=== PATIENT | male | born 1950 | race Caucasian/White ===

== ENCOUNTER 2019-11-15 04:14 | Inpatient (IN) | payer OTHER, MEDICAID ==
[~2019-11-15] VITALS: Ht 182.9 cm; Wt 121.8 kg
[~2019-11-15 04:14] MED LIST: AMIO200T4 PO; APIX5TAB PO; ATOR20TA50 PO; DIGO0.12 PO; GABA300C10; HYDR-4072 PO; METO-6 PO; OMEP-263 PO; PRED20TA2 PO; ROFL1TAB2 PO; SUCR1TAB
[2019-11-15] MEDS ORDERED: ONDANSETRON HCL 4 MG/2 ML VIAL IV ONE ×2 (05:15→07:45)
[2019-11-15] MEDS ORDERED: MORPHINE SULFATE 4 MG/ML SYR/VIAL IV ONE (05:15)
[2019-11-15 06:55] LABS: Basophils # (auto) 0.1 10 ^3/uL (0-0.2); Basophils % (auto) 0.7 % (0.0-2.0); Eosinophils # (auto) 0.2 10 ^3/uL (0-0.8); Hemoglobin 10.8 g/dL (13.5-17.5); Neutrophils % (auto) 83.6 % (37.0-80.0)
[2019-11-15 06:57] LABS: Eosinophils % (auto) 2.1 % (0.0-7.0); Hematocrit 36.1 % (41.0-53.0); Lymphocytes # (auto) 0.8 10 ^3/uL (0.4-5.4); Lymphocytes % (auto) 7.2 % (10.0-50.0); Mean Corpuscular Hemoglobin 21.2 pg (28.0-32.0); Mean Corpuscular Volume 70.7 fL (80.0-100.0); Monocytes # (auto) 0.8 10 ^3/uL (0-1.3); Monocytes % (auto) 6.4 % (0.0-12.0); Neutrophils # (auto) 9.8 10 ^3/uL (1.6-8.6); Nucleated Red Blood Cells % 0.1 %; Platelet Count (auto) 307 10^3/uL (140-450); Red Blood Cells 5.11 10^6/uL (4.5-5.90); White Blood Cell 11.7 10^3/uL (4.4-10.8)
[2019-11-15 07:03] LABS: Red Cell Distribution Width 21.4 % (11.8-14.3)
[2019-11-15 07:08] LABS: Potassium 4.4 mmol/L (3.5-5.1)
[2019-11-15] MEDS ORDERED: cloNIDine HCL 0.1 MG TAB PO ONE (07:15)
[2019-11-15 07:16] LABS: Albumin 3.4 g/dL (3.4-5.0); BUN/Creatinine Ratio 18.2; Bilirubin, Total 0.5 mg/dL (0.2-1.0); Calcium 8.4 mg/dL (8.5-10.1); Total Protein 6.6 g/dL (6.4-8.2)
[2019-11-15] MEDS ORDERED: HYDROmorphone HCL 2 MG/ML VL IV ONE (07:45)
[2019-11-15] MEDS ORDERED: SODIUM CHLORIDE 0.9% 1,000 ML IV ONE (07:50)
[2019-11-15] MEDS ORDERED: LABETALOL HCL 5 MG/ML 4ML SYRINGE IV ONE (08:00)
[2019-11-15] MEDS ORDERED: PIPERACILLIN-TAZOB 3.375GM 100 ML IV ONE (08:00)
[2019-11-15] MEDS ORDERED: NITROGLYCERIN 0.4 MG SL TAB SL PRN (08:45)
[2019-11-15] MEDS ORDERED: MORPHINE SULF INJ 2 MG/ML SYRINGE 1ML IV PRN ×2 (08:45)
[2019-11-15] MEDS ORDERED: ACETAMINOPHEN 325 MG TAB PO PRN (08:45)
[2019-11-15] MEDS ORDERED: hydrALAZINE HCL 20 MG/ML VL IV PRN (09:00)
[2019-11-15] MEDS: PIPERACILLIN-TAZOB 3.375GM 100 ML IV SCH ×2 (09:48→17:54)
[2019-11-15] MEDS: METOPROLOL TARTRATE 25 MG TAB PO SCH ×2 (09:49→22:00)
[2019-11-15] MEDS ORDERED: APIXABAN 5 MG TAB PO SCH (10:00)
[2019-11-15] MEDS: AMIODARONE HCL 200 MG TAB PO SCH ×2 (10:03→22:20)
[2019-11-15] MEDS: DIGOXIN 0.125 MG TAB PO SCH (10:03)
[2019-11-15 10:29] LABS: Lactic Acid w/Reflex 2.1 mmol/L (0.4-2.0)
[2019-11-15 10:55] VITALS: BP 153/88
[2019-11-15] MEDS: ONDANSETRON HCL 4 MG/2 ML VIAL IV PRN ×2 (11:31→15:34)
[2019-11-15] MEDS: MORPHINE SULF INJ 2 MG/ML SYRINGE 1ML IV PRN ×2 (11:31→15:34)
[2019-11-15] MEDS: D5W/SOD CHL 0.45%/KCL 20MEQ 1,000 ML IV SCH (12:28)
[2019-11-15] MEDS: ENALAPRILAT 1.25 MG/ML-1ML VIAL IV PRN (12:30)
[2019-11-15 12:43] VITALS: BP 162/88
[2019-11-15] MEDS: ALBUTEROL SULF 2.5 MG/0.5ML(0.5%) NEB SOLN NEB PRN (15:25)
[2019-11-15] MEDS: IPRATROPIUM BROM 0.5 MG/2.5ML INH SOL NEB PRN (15:25)
[2019-11-15 16:40] VITALS: BP 156/77
[2019-11-15] MEDS: HYDROmorphone HCL 2 MG/ML VL IV PRN ×2 (17:51→20:55)
[2019-11-15] MEDS ORDERED: RIVAROXABAN 20 MG TAB PO SCH (18:00)
[2019-11-15] MEDS: HYDROcodone-ACET 5/325MG TAB PO PRN (19:30)
[2019-11-15 22:00] VITALS: BP 113/64
[2019-11-15] MEDS: ATORVASTATIN 20 MG TAB PO SCH (22:21)
[2019-11-15 22:41] VITALS: BP 171/88
[2019-11-16] MEDS: HYDROmorphone HCL 2 MG/ML VL IV PRN ×7 (00:06→22:01)
[2019-11-16] MEDS: PIPERACILLIN-TAZOB 3.375GM 100 ML IV SCH ×3 (00:07→11:42)
[2019-11-16 05:30] VITALS: BP 92/55
[2019-11-16] MEDS: D5W/SOD CHL 0.45%/KCL 20MEQ 1,000 ML IV SCH ×2 (05:35→15:05)
[2019-11-16 06:19] LABS: Eosinophils # (auto) 0 10 ^3/uL (0-0.8); Eosinophils % (auto) 0.1 % (0.0-7.0); Hemoglobin 13.7 g/dL (13.5-17.5); Lymphocytes # (auto) 0.7 10 ^3/uL (0.4-5.4); Monocytes # (auto) 2.3 10 ^3/uL (0-1.3); Neutrophils # (auto) 10.8 10 ^3/uL (1.6-8.6)
[2019-11-16 06:23] LABS: Basophils # (auto) 0 10 ^3/uL (0-0.2); Basophils % (auto) 0.3 % (0.0-2.0); Hematocrit 44.1 % (41.0-53.0); Lymphocytes % (auto) 5.2 % (10.0-50.0); Mean Corpuscular Hemoglobin 21.6 pg (28.0-32.0); Mean Corpuscular Volume 69.7 fL (80.0-100.0); Monocytes % (auto) 16.7 % (0.0-12.0); Neutrophils % (auto) 77.7 % (37.0-80.0); Platelet Count (auto) 410 10^3/uL (140-450); Red Blood Cells 6.34 10^6/uL (4.5-5.90); White Blood Cell 13.9 10^3/uL (4.4-10.8)
[2019-11-16] MEDS: IPRATROPIUM BROM 0.5 MG/2.5ML INH SOL NEB PRN ×2 (06:33→22:34)
[2019-11-16] MEDS: ALBUTEROL SULF 2.5 MG/0.5ML(0.5%) NEB SOLN NEB PRN ×2 (06:34→22:34)
[2019-11-16 06:55] LABS: BUN/Creatinine Ratio 14.6; Calcium 8.5 mg/dL (8.5-10.1); Magnesium 2.6 mg/dL (1.6-2.6)
[2019-11-16 08:29] VITALS: BP 86/51
[2019-11-16] MEDS: METOPROLOL TARTRATE 25 MG TAB PO SCH ×2 (09:18→21:46)
[2019-11-16] MEDS: AMIODARONE HCL 200 MG TAB PO SCH ×2 (09:18→21:45)
[2019-11-16] MEDS: DIGOXIN 0.125 MG TAB PO SCH (09:46)
[2019-11-16] MEDS: HYDROcodone-ACET 5/325MG TAB PO PRN (09:46)
[2019-11-16 13:00] VITALS: BP 103/45
[2019-11-16] MEDS ORDERED: SODIUM CHLORIDE 0.9% 1,000 ML IV SCH (17:00)
[2019-11-16 18:00] VITALS: BP 109/52
[2019-11-16] MEDS: SODIUM CHLORIDE 0.9% 1,000 ML IV SCH (18:10)
[2019-11-16] MEDS: metroNIDAZOLE 500MG/100ML 100 ML IV SCH (21:45)
[2019-11-16] MEDS: ATORVASTATIN 20 MG TAB PO SCH (21:46)
[2019-11-16 22:00] VITALS: BP 111/72
[2019-11-17] MEDS: HYDROmorphone HCL 2 MG/ML VL IV PRN ×6 (00:45→23:23)
[2019-11-17 05:00] VITALS: BP 125/71
[2019-11-17] MEDS: SODIUM CHLORIDE 0.9% 1,000 ML IV SCH ×3 (05:09→20:17)
[2019-11-17 05:50] LABS: Basophils # (auto) 0 10 ^3/uL (0-0.2); Basophils % (auto) 0.4 % (0.0-2.0); Eosinophils # (auto) 0.2 10 ^3/uL (0-0.8); Lymphocytes # (auto) 1.1 10 ^3/uL (0.4-5.4)
[2019-11-17 05:53] LABS: Eosinophils % (auto) 2.4 % (0.0-7.0); Hematocrit 42.1 % (41.0-53.0); Hemoglobin 12.7 g/dL (13.5-17.5); Lymphocytes % (auto) 12.1 % (10.0-50.0); Mean Corpuscular Hemoglobin 21.4 pg (28.0-32.0); Mean Corpuscular Hgb Conc. 30.1 g/dL (32.0-36.0); Neutrophils # (auto) 5.6 10 ^3/uL (1.6-8.6); Neutrophils % (auto) 63.1 % (37.0-80.0); Platelet Count (auto) 310 10^3/uL (140-450); Red Blood Cells 5.93 10^6/uL (4.5-5.90); White Blood Cell 8.9 10^3/uL (4.4-10.8)
[2019-11-17] MEDS: metroNIDAZOLE 500MG/100ML 100 ML IV SCH ×3 (06:01→21:25)
[2019-11-17 06:08] LABS: BUN/Creatinine Ratio 17.1; Calcium 8.4 mg/dL (8.5-10.1); Potassium 4.4 mmol/L (3.5-5.1)
[2019-11-17 08:05] VITALS: BP 123/67
[2019-11-17] MEDS: cefTRIAXone 1GM/50ML D5W 50 ML IV SCH (08:05)
[2019-11-17] MEDS: ALBUTEROL SULF 2.5 MG/0.5ML(0.5%) NEB SOLN NEB PRN ×2 (08:51→14:28)
[2019-11-17] MEDS: IPRATROPIUM BROM 0.5 MG/2.5ML INH SOL NEB PRN ×2 (08:51→14:28)
[2019-11-17 09:00] VITALS: BP 123/67
[2019-11-17] MEDS: DIGOXIN 0.125 MG TAB PO SCH (09:15)
[2019-11-17] MEDS: METOPROLOL TARTRATE 25 MG TAB PO SCH ×2 (09:15→23:12)
[2019-11-17] MEDS: AMIODARONE HCL 200 MG TAB PO SCH ×2 (09:15→21:25)
[2019-11-17 13:00] VITALS: BP 127/71
[2019-11-17 16:35] LABS: Protein, Urine 34.4 mg/dL (0.0-11.9)
[2019-11-17 16:48] VITALS: BP 122/76
[2019-11-17] MEDS: IPRATROPIUM BROM 0.5 MG/2.5ML INH SOL NEB SCH ×2 (18:46→22:25)
[2019-11-17] MEDS: ALBUTEROL SULF 2.5 MG/0.5ML(0.5%) NEB SOLN NEB SCH ×2 (18:46→22:25)
[2019-11-17] MEDS: ATORVASTATIN 20 MG TAB PO SCH (21:26)
[2019-11-17 22:00] VITALS: BP 146/67
[2019-11-18] VITALS (7 sets, daily range): BP systolic 118–146; BP diastolic 64–76
[2019-11-18 00:17] LABS: Urine Amorphous Crystal FEW /hpf (None Seen); Urine Bacteria FEW /hpf (None Seen); Urine Blood 1+ /uL (Negative); Urine Hyaline Cast FEW /lpf (0 - 2); Urine Specific Gravity 1.016 (1.001-1.035); Urine WBC 7 /hpf (0 - 3)
[2019-11-18] MEDS: SODIUM CHLORIDE 0.9% 1,000 ML IV SCH ×3 (01:00→17:00)
[2019-11-18] MEDS: IPRATROPIUM BROM 0.5 MG/2.5ML INH SOL NEB SCH ×6 (02:13→22:27)
[2019-11-18] MEDS: ALBUTEROL SULF 2.5 MG/0.5ML(0.5%) NEB SOLN NEB SCH ×6 (02:14→22:27)
[2019-11-18] MEDS: HYDROmorphone HCL 2 MG/ML VL IV PRN ×7 (02:53→23:13)
[2019-11-18] MEDS: metroNIDAZOLE 500MG/100ML 100 ML IV SCH ×3 (05:32→22:00)
[2019-11-18 07:31] LABS: BUN/Creatinine Ratio 19.6; Bilirubin, Total 0.3 mg/dL (0.2-1.0); Calcium 8.4 mg/dL (8.5-10.1); Total Protein 6.4 g/dL (6.4-8.2)
[2019-11-18] MEDS: AMIODARONE HCL 200 MG TAB PO SCH ×2 (09:04→21:59)
[2019-11-18] MEDS: DIGOXIN 0.125 MG TAB PO SCH (09:09)
[2019-11-18] MEDS ORDERED: ERGOCALCIFEROL 50,000 UNIT(1.25MG) CAP PO SCH (13:00)
[2019-11-18] MEDS: METOPROLOL TARTRATE 25 MG TAB PO SCH ×2 (13:17→22:00)
[2019-11-18] MEDS: cefTRIAXone 1GM/50ML D5W 50 ML IV SCH (13:21)
[2019-11-18] MEDS: ERTAPENEM SOD INJ 1 GM in SODIUM CHL 0.9% 50 ML IV SCH (16:30)
[2019-11-18] MEDS: ATORVASTATIN 20 MG TAB PO SCH (21:59)
[2019-11-19] VITALS (7 sets, daily range): BP systolic 126–149; BP diastolic 65–81
[2019-11-19] MEDS: SODIUM CHLORIDE 0.9% 1,000 ML IV SCH ×2 (01:00→11:15)
[2019-11-19] MEDS: ALBUTEROL SULF 2.5 MG/0.5ML(0.5%) NEB SOLN NEB SCH ×4 (02:18→18:00)
[2019-11-19] MEDS: IPRATROPIUM BROM 0.5 MG/2.5ML INH SOL NEB SCH ×4 (02:19→18:00)
[2019-11-19] MEDS: HYDROmorphone HCL 2 MG/ML VL IV PRN ×5 (02:30→16:10)
[2019-11-19] MEDS: metroNIDAZOLE 500MG/100ML 100 ML IV SCH ×2 (05:44→13:30)
[2019-11-19 06:22] LABS: Albumin 2.8 g/dL (3.4-5.0); Calcium 8.6 mg/dL (8.5-10.1); Potassium 4.3 mmol/L (3.5-5.1)
[2019-11-19 06:27] LABS: BUN/Creatinine Ratio 16.5; Bilirubin, Total 0.2 mg/dL (0.2-1.0); Total Protein 5.9 g/dL (6.4-8.2)
[2019-11-19] MEDS: AMIODARONE HCL 200 MG TAB PO SCH (09:34)
[2019-11-19] MEDS: DIGOXIN 0.125 MG TAB PO SCH (09:35)
[2019-11-19] MEDS: METOPROLOL TARTRATE 25 MG TAB PO SCH (09:35)
[2019-11-19] MEDS: ERTAPENEM SOD INJ 1 GM in SODIUM CHL 0.9% 50 ML IV SCH (11:15)
[2019-11-19] MEDS: ENALAPRILAT 1.25 MG/ML-1ML VIAL IV PRN (15:27)
[2019-11-19] MEDS: HYDROcodone-ACET 5/325MG TAB PO PRN (15:28)
== END 2019-11-19 19:07 | disposition home health service (06) | DRG 393 ==
LOC: ER 04:14 → EDBD 04:14 → TELE 04:15 → TELE-WESTW 10:44
PROVIDERS: ADMIT Internal Medicine; ATTEND Internal Medicine
DX: K65.4 Sclerosing mesenteritis (principal); N17.0 Acute kidney failure with tubular necrosis; I48.20 Chronic atrial fibrillation, unspecified; K50.90 Crohn's disease, unspecified, without complications; I16.1 Hypertensive emergency; I12.9 Hypertensive chronic kidney disease with stage 1 through stage 4 chronic kidney disease, or unspecified chronic kidney disease; E86.0 Dehydration; Z95.0 Presence of cardiac pacemaker; N18.9 Chronic kidney disease, unspecified; Z90.49 Acquired absence of other specified parts of digestive tract; E55.9 Vitamin D deficiency, unspecified; Z68.36 Body mass index [BMI] 36.0-36.9, adult; I25.10 Atherosclerotic heart disease of native coronary artery without angina pectoris; J44.9 Chronic obstructive pulmonary disease, unspecified; N28.1 Cyst of kidney, acquired; Z79.01 Long term (current) use of anticoagulants; Z93.2 Ileostomy status; Z93.3 Colostomy status; E66.01 Morbid (severe) obesity due to excess calories
CPT/HCPCS: 36415; 71045; 74176; 80048; 80053; 81001; 82306; 82570; 83605; 83735; 83880; 83970; 84100; 84156; 84484; 85025; 87040; 93306; 94640; 99291; G0378; J0696; J1335; J2405; J2543; J3490

== ENCOUNTER 2019-11-25 20:01 | Emergency (ER) | payer OTHER, MEDICAID ==
[~2019-11-25] VITALS: Ht 182.9 cm; Wt 120.2 kg
[2019-11-25] MEDS ORDERED: ALBUTEROL SULF 2.5 MG/0.5ML(0.5%) NEB SOLN HHN ONE (21:30)
[2019-11-25] MEDS ORDERED: IPRATROPIUM BROM 0.5 MG/2.5ML INH SOL HHN ONE (21:30)
[2019-11-25 22:10] LABS: Hemoglobin 11.2 g/dL (13.5-17.5); Lymphocytes # (auto) 2.1 10 ^3/uL (0.4-5.4); Mean Corpuscular Hemoglobin 21.5 pg (28.0-32.0); Mean Corpuscular Hgb Conc. 30.9 g/dL (32.0-36.0)
[2019-11-25 22:11] LABS: Basophils # (auto) 0.1 10 ^3/uL (0-0.2); Eosinophils # (auto) 0.7 10 ^3/uL (0-0.8); Eosinophils % (auto) 6.2 % (0.0-7.0); Hematocrit 36.4 % (41.0-53.0); Lymphocytes % (auto) 18.3 % (10.0-50.0); Mean Corpuscular Volume 69.6 fL (80.0-100.0); Monocytes % (auto) 8.9 % (0.0-12.0); Neutrophils # (auto) 7.6 10 ^3/uL (1.6-8.6); Neutrophils % (auto) 65.6 % (37.0-80.0); Platelet Count (auto) 361 10^3/uL (140-450); Red Blood Cells 5.24 10^6/uL (4.5-5.90); White Blood Cell 11.7 10^3/uL (4.4-10.8)
[2019-11-25 22:24] LABS: Red Cell Distribution Width 21.2 % (11.8-14.3)
[2019-11-25 22:29] LABS: Albumin 2.9 g/dL (3.4-5.0); BUN/Creatinine Ratio 13.7; Calcium 8.3 mg/dL (8.5-10.1); Potassium 4.3 mmol/L (3.5-5.1)
[2019-11-25 22:31] LABS: INR 1.39 (0.9-1.15); Partial Thromboplastin Time 33.6 sec (23.0-31.2)
[2019-11-25 22:32] LABS: Bilirubin, Total 0.2 mg/dL (0.2-1.0); Total Protein 6.6 g/dL (6.4-8.2)
[2019-11-26 02:00] VITALS: BP 138/67
== END 2019-11-26 03:22 | disposition home or self-care (01) ==
LOC: ER 20:01
DX: I82.601 Acute embolism and thrombosis of unspecified veins of right upper extremity (principal); J44.9 Chronic obstructive pulmonary disease, unspecified; I48.91 Unspecified atrial fibrillation; I25.10 Atherosclerotic heart disease of native coronary artery without angina pectoris; I10 Essential (primary) hypertension; Z79.899 Other long term (current) drug therapy
CPT/HCPCS: 36415; 80053; 85025; 85610; 85730; 93971; 94640; 99285; J7644

== ENCOUNTER 2019-11-26 10:49 | Emergency (ER) | payer OTHER, MEDICAID ==
[~2019-11-26] VITALS: Ht 182.9 cm; Wt 120.2 kg
[2019-11-26 11:25] VITALS: BP 121/67
[2019-11-26] MEDS ORDERED: cefTRIAXone 1GM/50ML D5W 50 ML IV ONE (13:15)
[2019-11-26] MEDS ORDERED: NEOMYCIN-BACITRACIN-POLYM UNITDOSE PKG TOP OINT TOP ONE (13:21)
[2019-11-26] MEDS ORDERED: NEOMYCIN-BACITRACIN-POLYM 15GM TOP OINT TOP SCH (22:00)
== END 2019-11-26 14:13 | disposition home or self-care (01) ==
LOC: ER 10:49
DX: Z45.2 Encounter for adjustment and management of vascular access device (principal); J44.9 Chronic obstructive pulmonary disease, unspecified; L03.113 Cellulitis of right upper limb; I10 Essential (primary) hypertension; Z79.899 Other long term (current) drug therapy
CPT/HCPCS: 96365; 99285; J0696; 36569

== ENCOUNTER 2020-01-23 02:14 | Emergency (ER) | payer OTHER, MEDICAID ==
[~2020-01-23] VITALS: Ht 172.7 cm; Wt 108.9 kg
[2020-01-23] MEDS ORDERED: ONDANSETRON HCL 4 MG/2 ML VIAL IV ONE (07:00)
[2020-01-23] MEDS ORDERED: MORPHINE SULFATE 4 MG/ML SYR/VIAL IV ONE (07:00)
[2020-01-23 08:10] LABS: Eosinophils # (auto) 0.7 10 ^3/uL (0-0.8); Hemoglobin 11.5 g/dL (13.5-17.5)
[2020-01-23 08:13] VITALS: BP 136/55
[2020-01-23 08:15] LABS: Basophils # (auto) 0.2 10 ^3/uL (0-0.2); Basophils % (auto) 2.2 % (0.0-2.0); Eosinophils % (auto) 7.1 % (0.0-7.0); Hematocrit 36.5 % (41.0-53.0); Lymphocytes # (auto) 1.6 10 ^3/uL (0.4-5.4); Lymphocytes % (auto) 15.5 % (10.0-50.0); Mean Corpuscular Hemoglobin 22.5 pg (28.0-32.0); Mean Corpuscular Hgb Conc. 31.5 g/dL (32.0-36.0); Mean Corpuscular Volume 71.3 fL (80.0-100.0); Monocytes # (auto) 0.9 10 ^3/uL (0-1.3); Monocytes % (auto) 8.4 % (0.0-12.0); Neutrophils # (auto) 6.8 10 ^3/uL (1.6-8.6); Neutrophils % (auto) 66.8 % (37.0-80.0); Nucleated Red Blood Cells % 0.1 %; Platelet Count (auto) 380 10^3/uL (140-450); Red Blood Cells 5.12 10^6/uL (4.5-5.90); Red Cell Distribution Width 20.7 % (11.8-14.3); White Blood Cell 10.2 10^3/uL (4.4-10.8)
[2020-01-23 08:32] LABS: Albumin 3.3 g/dL (3.4-5.0); Anion Gap 7 (5-15); Blood Urea Nitrogen 18 mg/dL (7-18); Calcium 8.9 mg/dL (8.5-10.1); Carbon Dioxide 25 mmol/L (21-32); Chloride 105 mmol/L (98-107); Glucose 104 mg/dL (74-106); Potassium 3.9 mmol/L (3.5-5.1); Sodium 137 mmol/L (136-145)
[2020-01-23 08:34] LABS: Alanine Aminotransferase 24 U/L (16-61); Aspartate Aminotransferase 21 U/L (15-37); BUN/Creatinine Ratio 16.1; GFR African American 83 mL/min; GFR Non-African American 69 mL/min
[2020-01-23 08:39] LABS: Alkaline Phosphatase 64 U/L (45-117); Bilirubin, Total 0.3 mg/dL (0.2-1.0); Total Protein 7.5 g/dL (6.4-8.2)
== END 2020-01-23 11:04 | disposition home or self-care (01) ==
LOC: EDBD 02:14 → ER 02:17
DX: R10.9 Unspecified abdominal pain (principal); J44.9 Chronic obstructive pulmonary disease, unspecified; I10 Essential (primary) hypertension; F12.10 Cannabis abuse, uncomplicated
CPT/HCPCS: 36415; 71045; 74176; 80053; 84484; 85025; 96374; 96375; 99285; J2270; J2405

== ENCOUNTER 2020-05-30 18:10 | Inpatient (IN) | payer OTHER, MEDICAID ==
[~2020-05-30] VITALS: Ht 182.9 cm; Wt 121.4 kg
[2020-05-30] MEDS ORDERED: methylPREDNISolone SOD SUCC 125 MG/2 ML VL IV ONE (18:45)
[2020-05-30 19:14] LABS: Basophils # (auto) 0.1 10 ^3/uL (0-0.2); Eosinophils # (auto) 0.1 10 ^3/uL (0-0.8); Lymphocytes # (auto) 1.2 10 ^3/uL (0.4-5.4); Nucleated Red Blood Cells % 0.1 %
[2020-05-30 19:16] LABS: Basophils % (auto) 0.7 % (0.0-2.0); Eosinophils % (auto) 0.5 % (0.0-7.0); Hematocrit 33.8 % (41.0-53.0); Hemoglobin 10.6 g/dL (13.5-17.5); Lymphocytes % (auto) 11.9 % (10.0-50.0); Mean Corpuscular Hemoglobin 21.9 pg (28.0-32.0); Mean Corpuscular Hgb Conc. 31.5 g/dL (32.0-36.0); Mean Corpuscular Volume 69.6 fL (80.0-100.0); Monocytes # (auto) 0.9 10 ^3/uL (0-1.3); Monocytes % (auto) 8.4 % (0.0-12.0); Neutrophils # (auto) 8.2 10 ^3/uL (1.6-8.6); Neutrophils % (auto) 78.5 % (37.0-80.0); Platelet Count (auto) 394 10^3/uL (140-450); Red Blood Cells 4.85 10^6/uL (4.5-5.90); Red Cell Distribution Width 18.6 % (11.8-14.3); White Blood Cell 10.4 10^3/uL (4.4-10.8)
[2020-05-30 19:28] LABS: Albumin 3.7 g/dL (3.4-5.0); Anion Gap 7 (5-15); Blood Urea Nitrogen 17 mg/dL (7-18); Calcium 8.9 mg/dL (8.5-10.1); Carbon Dioxide 25 mmol/L (21-32); Chloride 107 mmol/L (98-107); Glucose 93 mg/dL (74-106); Magnesium 2.2 mg/dL (1.6-2.6); Sodium 139 mmol/L (136-145)
[2020-05-30 19:32] LABS: INR 1.46 (0.9-1.15); Partial Thromboplastin Time 38.2 sec (23.0-31.2)
[2020-05-30 19:35] LABS: Alanine Aminotransferase 29 U/L (16-61); Alkaline Phosphatase 77 U/L (45-117); Aspartate Aminotransferase 24 U/L (15-37); BUN/Creatinine Ratio 14.9; Bilirubin, Total 0.5 mg/dL (0.2-1.0); GFR African American 81 mL/min; GFR Non-African American 67 mL/min; Total Protein 7.6 g/dL (6.4-8.2)
[2020-05-30] MEDS ORDERED: MAGNESIUM SULFATE 1GM/100ML 100 ML IV ONE (21:45)
[2020-05-30] MEDS ORDERED: cefTRIAXone 1GM/50ML D5W 50 ML IV ONE (21:45)
[2020-05-30] MEDS ORDERED: MORPHINE SULF INJ 2 MG/ML SYRINGE 1ML IV PRN (22:45)
[2020-05-30] MEDS ORDERED: levoFLOXacin 250MG 50 ML IV ONE (22:45)
[2020-05-30] MEDS ORDERED: NITROGLYCERIN 0.4 MG SL TAB SL PRN (22:45)
[2020-05-30 23:00] VITALS: BP 143/62
[2020-05-30] MEDS ORDERED: levoFLOXacin 500MG 100 ML IV ONE (23:45)
[2020-05-31] VITALS (7 sets, daily range): BP systolic 143–158; BP diastolic 58–87
[2020-05-31] MEDS: ALBUTEROL SULF 2.5 MG/0.5ML(0.5%) NEB SOLN NEB PRN (04:09)
[2020-05-31] MEDS: GABAPENTIN 300 MG CAP PO SCH ×3 (04:53→21:38)
[2020-05-31] MEDS: IPRATROPIUM BROM 0.5 MG/2.5ML INH SOL NEB SCH ×5 (06:17→22:46)
[2020-05-31] MEDS: ALBUTEROL SULF 2.5 MG/0.5ML(0.5%) NEB SOLN NEB SCH ×5 (06:17→22:46)
[2020-05-31] MEDS ORDERED: OMEPRAZOLE 20MG/10ML ORAL SUSP PO SCH (10:00)
[2020-05-31] MEDS: levoFLOXacin 500MG 100 ML IV SCH (11:08)
[2020-05-31] MEDS: methylPREDNISolone SOD SUCC 40 MG/ML VL IV SCH ×2 (11:08→21:36)
[2020-05-31] MEDS: sulfaSALAzine 500 MG TAB PO SCH ×2 (11:08→21:36)
[2020-05-31] MEDS: AMIODARONE HCL 200 MG TAB PO SCH ×2 (11:09→21:37)
[2020-05-31] MEDS: DIGOXIN 0.125 MG TAB PO SCH (11:09)
[2020-05-31] MEDS: APIXABAN 5 MG TAB PO SCH ×2 (11:09→21:37)
[2020-05-31] MEDS: POTASSIUM CHLORIDE 8 MEQ TAB PO SCH (11:09)
[2020-05-31] MEDS: FUROSEMIDE 40 MG TAB PO SCH (11:10)
[2020-05-31] MEDS: METOPROLOL TARTRATE 50 MG TAB PO SCH (11:10)
[2020-05-31] MEDS: ATORVASTATIN 20 MG TAB PO SCH (21:37)
[2020-05-31] MEDS ORDERED: BUDESONIDE (INHALATION) 0.5 MG/2 ML NEB NEB SCH (22:00)
[2020-06-01 04:54] VITALS: BP 159/79
[2020-06-01] MEDS: GABAPENTIN 300 MG CAP PO SCH ×3 (05:03→21:20)
[2020-06-01] MEDS: IPRATROPIUM BROM 0.5 MG/2.5ML INH SOL NEB SCH ×2 (07:58→18:23)
[2020-06-01] MEDS: ALBUTEROL SULF 2.5 MG/0.5ML(0.5%) NEB SOLN NEB SCH ×2 (07:58→18:23)
[2020-06-01] MEDS: methylPREDNISolone SOD SUCC 40 MG/ML VL IV SCH ×3 (08:16→20:03)
[2020-06-01] MEDS: PANTOPRAZOLE 40 MG TAB PO SCH (08:17)
[2020-06-01] MEDS: METOPROLOL TARTRATE 50 MG TAB PO SCH (08:17)
[2020-06-01] MEDS: FUROSEMIDE 40 MG TAB PO SCH (08:18)
[2020-06-01] MEDS: AMIODARONE HCL 200 MG TAB PO SCH (08:18)
[2020-06-01] MEDS: APIXABAN 5 MG TAB PO SCH ×2 (08:18→21:19)
[2020-06-01] MEDS: POTASSIUM CHLORIDE 8 MEQ TAB PO SCH (08:19)
[2020-06-01] MEDS: DIGOXIN 0.125 MG TAB PO SCH (08:19)
[2020-06-01] MEDS: levoFLOXacin 500MG 100 ML IV SCH (08:20)
[2020-06-01 08:55] VITALS: BP 159/86
[2020-06-01] MEDS ORDERED: IOHEXOL 350 MG/ML 100ML IJ ONE (09:28)
[2020-06-01 13:00] VITALS: BP 142/79
[2020-06-01] MEDS: sulfaSALAzine 500 MG TAB PO SCH ×2 (13:24→21:19)
[2020-06-01] MEDS ORDERED: DEXTROSE (50%) 50ML SYRG IV PRN (14:45)
[2020-06-01] MEDS: BUDESONIDE (INHALATION) 0.5 MG/2 ML NEB NEB SCH ×2 (15:00→18:23)
[2020-06-01] MEDS: SUCRALFATE 1 GM/10 ML ORAL SUSP PO SCH (16:06)
[2020-06-01 17:03] VITALS: BP 139/70
[2020-06-01] MEDS: InsuLIN REG 1unit/0.01ml Soln (100units/ml) SC SCH ×2 (17:17→22:58)
[2020-06-01] MEDS: ACCU-CHEK COMFORT CURVE STRIP VI SCH ×2 (17:17→22:58)
[2020-06-01] MEDS: HYDROcodone-ACET 5/325MG TAB PO PRN (17:20)
[2020-06-01] MEDS: ACETYLCYSTEINE 10 %(100MG/ML) SOL 4ML NEB SCH (18:23)
[2020-06-01] MEDS: ATORVASTATIN 20 MG TAB PO SCH (21:19)
[2020-06-01] MEDS: RANOLAZINE ER 500 MG TAB PO SCH (21:20)
[2020-06-01 22:01] VITALS: BP 133/79
[2020-06-02] MEDS: IPRATROPIUM BROM 0.5 MG/2.5ML INH SOL NEB SCH ×4 (00:10→18:51)
[2020-06-02] MEDS: ALBUTEROL SULF 2.5 MG/0.5ML(0.5%) NEB SOLN NEB PRN (00:10)
[2020-06-02] MEDS: ACETYLCYSTEINE 10 %(100MG/ML) SOL 4ML NEB SCH ×5 (01:12→18:51)
[2020-06-02 04:57] VITALS: BP 137/85
[2020-06-02] MEDS: GABAPENTIN 300 MG CAP PO SCH ×3 (05:48→21:57)
[2020-06-02] MEDS: SUCRALFATE 1 GM/10 ML ORAL SUSP PO SCH ×3 (05:48→18:12)
[2020-06-02] MEDS: methylPREDNISolone SOD SUCC 40 MG/ML VL IV SCH ×4 (05:48→20:56)
[2020-06-02] MEDS: ACCU-CHEK COMFORT CURVE STRIP VI SCH ×4 (05:49→23:50)
[2020-06-02] MEDS: InsuLIN REG 1unit/0.01ml Soln (100units/ml) SC SCH ×4 (06:00→23:51)
[2020-06-02] MEDS: ALBUTEROL SULF 2.5 MG/0.5ML(0.5%) NEB SOLN NEB SCH ×3 (07:55→18:51)
[2020-06-02 09:00] VITALS: BP 133/77
[2020-06-02] MEDS: DIGOXIN 0.125 MG TAB PO SCH (10:00)
[2020-06-02] MEDS: levoFLOXacin 500MG 100 ML IV SCH (10:06)
[2020-06-02] MEDS: sulfaSALAzine 500 MG TAB PO SCH ×2 (10:06→21:57)
[2020-06-02] MEDS: APIXABAN 5 MG TAB PO SCH ×2 (10:06→21:58)
[2020-06-02] MEDS: POTASSIUM CHLORIDE 8 MEQ TAB PO SCH ×2 (10:07→21:59)
[2020-06-02] MEDS: METOPROLOL TARTRATE 50 MG TAB PO SCH ×2 (10:07→21:58)
[2020-06-02] MEDS: FUROSEMIDE 40 MG TAB PO SCH (10:07)
[2020-06-02] MEDS: RANOLAZINE ER 500 MG TAB PO SCH ×2 (10:08→21:57)
[2020-06-02] MEDS: PANTOPRAZOLE 40 MG TAB PO SCH (10:08)
[2020-06-02] MEDS: HYDROcodone-ACET 5/325MG TAB PO PRN ×2 (10:08→21:59)
[2020-06-02] MEDS: BUDESONIDE (INHALATION) 0.5 MG/2 ML NEB NEB SCH (12:04)
[2020-06-02 13:00] VITALS: BP 145/88
[2020-06-02] MEDS: FUROSEMIDE 20 MG/2 ML VIAL IV SCH ×2 (15:09→21:57)
[2020-06-02 17:01] VITALS: BP 139/75
[2020-06-02] MEDS: ATORVASTATIN 20 MG TAB PO SCH (21:58)
[2020-06-02 22:09] VITALS: BP 134/67
[2020-06-02 23:20] VITALS: BP 134/67
[2020-06-03] MEDS: ALBUTEROL SULF 2.5 MG/0.5ML(0.5%) NEB SOLN NEB PRN (00:36)
[2020-06-03] MEDS: ACETYLCYSTEINE 10 %(100MG/ML) SOL 4ML NEB SCH ×4 (00:37→18:00)
[2020-06-03] MEDS: BUDESONIDE (INHALATION) 0.5 MG/2 ML NEB NEB SCH ×3 (00:37→18:25)
[2020-06-03] MEDS: methylPREDNISolone SOD SUCC 40 MG/ML VL IV SCH ×3 (03:14→14:35)
[2020-06-03 05:04] VITALS: BP 109/75
[2020-06-03] MEDS: IPRATROPIUM BROM 0.5 MG/2.5ML INH SOL NEB SCH ×3 (05:56→18:25)
[2020-06-03] MEDS: ALBUTEROL SULF 2.5 MG/0.5ML(0.5%) NEB SOLN NEB SCH ×3 (05:56→18:26)
[2020-06-03] MEDS: ACCU-CHEK COMFORT CURVE STRIP VI SCH ×3 (06:00→18:04)
[2020-06-03] MEDS: InsuLIN REG 1unit/0.01ml Soln (100units/ml) SC SCH ×3 (06:33→18:00)
[2020-06-03] MEDS: SUCRALFATE 1 GM/10 ML ORAL SUSP PO SCH ×3 (06:41→18:04)
[2020-06-03] MEDS: HYDROcodone-ACET 5/325MG TAB PO PRN ×2 (06:41→14:36)
[2020-06-03] MEDS: FUROSEMIDE 20 MG/2 ML VIAL IV SCH ×2 (06:41→14:35)
[2020-06-03] MEDS: GABAPENTIN 300 MG CAP PO SCH ×2 (06:41→14:35)
[2020-06-03 07:08] LABS: Potassium 4.3 mmol/L (3.5-5.1)
[2020-06-03 07:12] LABS: BUN/Creatinine Ratio 32.1; Calcium 8.6 mg/dL (8.5-10.1)
[2020-06-03] MEDS: levoFLOXacin 500MG 100 ML IV SCH (08:51)
[2020-06-03] MEDS: sulfaSALAzine 500 MG TAB PO SCH (08:51)
[2020-06-03] MEDS: POTASSIUM CHLORIDE 8 MEQ TAB PO SCH (08:52)
[2020-06-03] MEDS: DIGOXIN 0.125 MG TAB PO SCH (08:52)
[2020-06-03] MEDS: APIXABAN 5 MG TAB PO SCH (08:52)
[2020-06-03] MEDS: METOPROLOL TARTRATE 50 MG TAB PO SCH (08:52)
[2020-06-03] MEDS: PANTOPRAZOLE 40 MG TAB PO SCH (08:53)
[2020-06-03] MEDS: RANOLAZINE ER 500 MG TAB PO SCH (08:53)
[2020-06-03 09:00] VITALS: BP 131/71
[2020-06-03] MEDS ORDERED: DOXY-332 PO (11:30)
[2020-06-03] MEDS ORDERED: OMEP-263 PO (11:30)
[2020-06-03] MEDS ORDERED: PRED20TA2 PO (11:30)
[2020-06-03] MEDS ORDERED: IPRA0.00 IN (11:31)
[2020-06-03 12:48] VITALS: BP 131/71
[2020-06-03 12:53] VITALS: BP 111/63
[2020-06-03 17:00] VITALS: BP 131/60
[2020-06-03] MEDS ORDERED: DOXYCYCLINE 100 MG TAB/CAP PO SCH (22:00)
== END 2020-06-03 20:07 | disposition home or self-care (01) | DRG 190 ==
LOC: EDBD 18:10 → ER 18:12 → TELE 18:13 → TELE-CENTR 23:42
PROVIDERS: ADMIT Internal Medicine; ATTEND Internal Medicine
PROC: 5A09357 Assistance with Respiratory Ventilation, Less than 24 Consecutive Hours, Continuous Positive Airway Pressure (ICD-10-PCS; principal; 2020-06-01)
PROC: 5A09357 Assistance with Respiratory Ventilation, Less than 24 Consecutive Hours, Continuous Positive Airway Pressure (ICD-10-PCS; 2020-06-02)
PROC: 5A09357 Assistance with Respiratory Ventilation, Less than 24 Consecutive Hours, Continuous Positive Airway Pressure (ICD-10-PCS; 2020-06-03)
DX: J44.1 Chronic obstructive pulmonary disease with (acute) exacerbation (principal); J96.01 Acute respiratory failure with hypoxia; J45.902 Unspecified asthma with status asthmaticus; I48.20 Chronic atrial fibrillation, unspecified; J98.11 Atelectasis; K51.90 Ulcerative colitis, unspecified, without complications; I25.10 Atherosclerotic heart disease of native coronary artery without angina pectoris; J01.00 Acute maxillary sinusitis, unspecified; G47.30 Sleep apnea, unspecified; I50.9 Heart failure, unspecified; I11.0 Hypertensive heart disease with heart failure; E66.9 Obesity, unspecified; Z68.35 Body mass index [BMI] 35.0-35.9, adult; Z79.01 Long term (current) use of anticoagulants; Z82.49 Family history of ischemic heart disease and other diseases of the circulatory system; Z90.49 Acquired absence of other specified parts of digestive tract; Z95.0 Presence of cardiac pacemaker; Z20.822 Contact with and (suspected) exposure to COVID-19
CPT/HCPCS: 36415; 36600; 71045; 71260; 80048; 80053; 82805; 82962; 83605; 83735; 83880; 84484; 85025; 85379; 85610; 85730; 87040; 87426; 93005; 93306; 94640; 94660; 96365; 96367; 96368; 96375; 99291; G0378; J0696; J1815; J1956

== ENCOUNTER 2020-12-19 16:47 | Inpatient (IN) | payer OTHER, MEDICAID ==
[~2020-12-19] VITALS: Ht 182.9 cm; Wt 114.3 kg
[~2020-12-19 16:47] MED LIST changes: -AMIO200T4 PO; +FURO40TA4 PO; -GABA300C10; +GABA300C10 PO; +IPRA0.00 IN; -SUCR1TAB; +SUCR1TAB PO; +SUCR1TAB22 OR
[2020-12-19] MEDS ORDERED: IPRATROPIUM BROM 0.5 MG/2.5ML INH SOL NEB ONE (17:15)
[2020-12-19] MEDS ORDERED: ALBUTEROL SULF 2.5 MG/0.5ML(0.5%) NEB SOLN NEB ONE (17:15)
[2020-12-19] MEDS ORDERED: methylPREDNISolone SOD SUCC 125 MG/2 ML VL IV ONE (17:15)
[2020-12-19 19:14] LABS: Basophils # (auto) 0 10 ^3/uL (0-0.2); Basophils % (auto) 0.1 % (0.0-2.0); Eosinophils # (auto) 0 10 ^3/uL (0-0.8); Lymphocytes # (auto) 0.9 10 ^3/uL (0.4-5.4); White Blood Cell 9.3 10^3/uL (4.4-10.8)
[2020-12-19 19:16] LABS: Hematocrit 39.1 % (41.0-53.0); Hemoglobin 12.6 g/dL (13.5-17.5); Lymphocytes % (auto) 9.4 % (10.0-50.0); Mean Corpuscular Hemoglobin 24.8 pg (28.0-32.0); Mean Corpuscular Hgb Conc. 32.3 g/dL (32.0-36.0); Mean Corpuscular Volume 76.8 fL (80.0-100.0); Monocytes # (auto) 0.7 10 ^3/uL (0-1.3); Neutrophils # (auto) 7.7 10 ^3/uL (1.6-8.6); Neutrophils % (auto) 82.5 % (37.0-80.0); Red Cell Distribution Width 17.7 % (11.8-14.3)
[2020-12-19 19:35] LABS: Chloride 106 mmol/L (98-107); Potassium 3.9 mmol/L (3.5-5.1); Sodium 135 mmol/L (136-145)
[2020-12-19 19:46] LABS: Alanine Aminotransferase 24 U/L (16-61); Albumin 3.6 g/dL (3.4-5.0); Alkaline Phosphatase 79 U/L (45-117); Anion Gap 5 (5-15); Aspartate Aminotransferase 14 U/L (15-37); BUN/Creatinine Ratio 18.3; Bilirubin, Total 0.4 mg/dL (0.2-1.0); Blood Urea Nitrogen 17 mg/dL (7-18); Calcium 9.1 mg/dL (8.5-10.1); Carbon Dioxide 24 mmol/L (21-32); GFR African American 103 mL/min; GFR Non-African American 85 mL/min; Glucose 110 mg/dL (74-106); Lipase 74 U/L (73-393); Magnesium 2.4 mg/dL (1.6-2.6); Total Protein 7.6 g/dL (6.4-8.2)
[2020-12-19] MEDS ORDERED: DOCUSATE SOD 100 MG CAP PO PRN (22:30)
[2020-12-19] MEDS ORDERED: ONDANSETRON HCL 4 MG/2 ML VIAL IV PRN (22:30)
[2020-12-19] MEDS ORDERED: ACETAMINOPHEN 325 MG TAB PO PRN (22:30)
[2020-12-19 22:51] LABS: Urine Bacteria NONE SEEN /hpf (None Seen); Urine Blood 3+ /uL (Negative); Urine Hyaline Cast FEW /lpf (0 - 2); Urine Mucus FEW (None Seen); Urine Specific Gravity 1.018 (1.001-1.035); Urine WBC 12 /hpf (0 - 3)
[2020-12-19] MEDS ORDERED: NITROGLYCERIN 0.4 MG SL TAB SL PRN (23:30)
[2020-12-19] MEDS ORDERED: MORPHINE SULFATE INJECTION 2 MG/ML SYRG IV PRN (23:30)
[2020-12-20 02:24] VITALS: BP 176/73
[2020-12-20] MEDS: ALBUTEROL SULF 2.5 MG/0.5ML(0.5%) NEB SOLN NEB PRN ×3 (04:05→21:58)
[2020-12-20] MEDS: IPRATROPIUM BROM 0.5 MG/2.5ML INH SOL NEB PRN ×3 (04:05→21:58)
[2020-12-20] MEDS: HYDROcodone-ACET 5/325MG TAB PO PRN ×4 (04:21→16:15)
[2020-12-20] MEDS ORDERED: ALBUTEROL SULF HFA 90MCG INH 200DOSE IN SCH (06:00)
[2020-12-20] MEDS ORDERED: methylPREDNISolone SOD SUCC 40 MG/ML VL IV SCH (06:00)
[2020-12-20 07:22] LABS: Basophils # (auto) 0 10 ^3/uL (0-0.2); Basophils % (auto) 0.2 % (0.0-2.0); Eosinophils # (auto) 0 10 ^3/uL (0-0.8); Hematocrit 36.1 % (41.0-53.0); Hemoglobin 11.9 g/dL (13.5-17.5); Lymphocytes # (auto) 0.6 10 ^3/uL (0.4-5.4); Mean Corpuscular Hemoglobin 25.3 pg (28.0-32.0); Mean Corpuscular Hgb Conc. 32.9 g/dL (32.0-36.0); Monocytes # (auto) 0.1 10 ^3/uL (0-1.3); Monocytes % (auto) 1.4 % (0.0-12.0); Neutrophils # (auto) 8.7 10 ^3/uL (1.6-8.6); Neutrophils % (auto) 92.4 % (37.0-80.0); Nucleated Red Blood Cells % 0.1 %; Red Blood Cells 4.69 10^6/uL (4.5-5.90); Red Cell Distribution Width 17.8 % (11.8-14.3); White Blood Cell 9.4 10^3/uL (4.4-10.8)
[2020-12-20 07:34] LABS: Albumin 3.3 g/dL (3.4-5.0); Potassium 4.1 mmol/L (3.5-5.1)
[2020-12-20 07:37] LABS: BUN/Creatinine Ratio 20.2
[2020-12-20 07:52] LABS: Bilirubin, Total 0.4 mg/dL (0.2-1.0); Total Protein 6.9 g/dL (6.4-8.2)
[2020-12-20] MEDS: SODIUM CHLOR 0.9% PF (SALINE LOCK) 10ML VIAL/SYR IV SCH ×3 (08:24→22:00)
[2020-12-20] MEDS: ZINC SULFATE 220mg CAP or TAB PO SCH (10:36)
[2020-12-20] MEDS: FAMOTIDINE (10MG/ML) 2ML VL IV SCH ×2 (10:36→22:33)
[2020-12-20] MEDS: APIXABAN 5 MG TAB PO SCH ×2 (10:36→22:32)
[2020-12-20] MEDS: CARVEDILOL 12.5 MG TAB PO SCH ×2 (10:37→22:32)
[2020-12-20] MEDS: ASCORBIC ACID 500 MG TAB PO SCH ×2 (10:37→22:30)
[2020-12-20] MEDS: MULTIPLE VITAMIN TAB PO SCH (10:37)
[2020-12-20] MEDS ORDERED: INFLUENZA QUAD 2021-2022 0.5 ML SYRG IM SCH (15:15)
[2020-12-20] MEDS ORDERED: METH2.5T PO (16:09)
[2020-12-20] MEDS ORDERED: POTA1TAB64 PO (16:09)
[2020-12-20] MEDS ORDERED: ALBU108A5 INH (16:09)
[2020-12-20] MEDS ORDERED: RIV20T PO (16:09)
[2020-12-20] MEDS ORDERED: UMEC1INH INH (16:09)
[2020-12-20] MEDS ORDERED: FOLI1TAB6 PO (16:09)
[2020-12-20 17:00] VITALS: BP 158/101
[2020-12-20] MEDS ORDERED: NIFEdipine ER 30 MG TAB PO ONE (18:45)
[2020-12-20 20:00] VITALS: BP 135/82
[2020-12-20 22:00] VITALS: BP 135/82
[2020-12-20] MEDS: NIFEdipine ER 30 MG TAB PO SCH (22:00)
[2020-12-20] MEDS: ATORVASTATIN 20 MG TAB PO SCH (22:32)
[2020-12-20] MEDS: methylPREDNISolone SOD SUCC 40 MG/ML VL IV SCH (22:33)
[2020-12-21] MEDS: ALBUTEROL SULF 2.5 MG/0.5ML(0.5%) NEB SOLN NEB PRN ×2 (01:53→06:56)
[2020-12-21] MEDS: IPRATROPIUM BROM 0.5 MG/2.5ML INH SOL NEB PRN ×2 (01:53→06:55)
[2020-12-21] MEDS: HYDROcodone-ACET 5/325MG TAB PO PRN ×2 (04:48→13:13)
[2020-12-21 05:00] VITALS: BP 122/73
[2020-12-21] MEDS: SODIUM CHLOR 0.9% PF (SALINE LOCK) 10ML VIAL/SYR IV SCH ×3 (06:05→22:10)
[2020-12-21 08:00] VITALS: BP 132/81
[2020-12-21 09:00] VITALS: BP 132/81
[2020-12-21] MEDS: FAMOTIDINE (10MG/ML) 2ML VL IV SCH ×2 (09:45→22:10)
[2020-12-21] MEDS: methylPREDNISolone SOD SUCC 40 MG/ML VL IV SCH ×2 (09:45→22:11)
[2020-12-21] MEDS: MULTIPLE VITAMIN TAB PO SCH (09:45)
[2020-12-21] MEDS: CARVEDILOL 12.5 MG TAB PO SCH ×2 (09:45→22:12)
[2020-12-21] MEDS: ASCORBIC ACID 500 MG TAB PO SCH ×2 (09:46→22:13)
[2020-12-21] MEDS: NIFEdipine ER 30 MG TAB PO SCH ×2 (09:46→22:12)
[2020-12-21] MEDS: ZINC SULFATE 220mg CAP or TAB PO SCH (09:46)
[2020-12-21] MEDS: APIXABAN 5 MG TAB PO SCH ×2 (09:46→22:12)
[2020-12-21] MEDS: FUROSEMIDE 20 MG TAB PO SCH (09:46)
[2020-12-21] MEDS: IPRATROPIUM BROM 0.5 MG/2.5ML INH SOL NEB SCH ×4 (10:05→22:12)
[2020-12-21] MEDS: ALBUTEROL SULF 2.5 MG/0.5ML(0.5%) NEB SOLN NEB SCH ×4 (10:05→22:12)
[2020-12-21] MEDS ORDERED: METO-289 PO (11:17)
[2020-12-21 13:00] VITALS: BP 136/88
[2020-12-21] MEDS ORDERED: IPRATROPIUM BROM 0.5 MG/2.5ML INH SOL NEB PRN (15:30)
[2020-12-21] MEDS ORDERED: ALBUTEROL SULF 2.5 MG/0.5ML(0.5%) NEB SOLN NEB PRN (15:30)
[2020-12-21] MEDS ORDERED: guaiFENesin-DM 100/10mg/5ml SYR PO PRN (15:30)
[2020-12-21] MEDS ORDERED: cefTRIAXone 1GM/50ML D5W 50 ML IV ONE (15:45)
[2020-12-21 16:48] VITALS: BP 127/73
[2020-12-21] MEDS ORDERED: AZITHROMYCIN 500MG/ 250ML 250 ML IV ONE (17:00)
[2020-12-21] MEDS: MORPHINE SULFATE INJECTION 2 MG/ML SYRG IV PRN ×2 (17:46→22:19)
[2020-12-21 22:00] VITALS: BP 142/84
[2020-12-21] MEDS: ATORVASTATIN 20 MG TAB PO SCH (22:12)
[2020-12-21] MEDS: GABAPENTIN 300 MG CAP PO SCH (22:12)
[2020-12-21] MEDS: ACETYLCYSTEINE 20%(200MG/ML) SOL 4ML NEB SCH (22:13)
[2020-12-22] MEDS: MORPHINE SULFATE INJECTION 2 MG/ML SYRG IV PRN ×5 (02:31→21:28)
[2020-12-22] MEDS: IPRATROPIUM BROM 0.5 MG/2.5ML INH SOL NEB SCH ×6 (02:33→22:37)
[2020-12-22] MEDS: ALBUTEROL SULF 2.5 MG/0.5ML(0.5%) NEB SOLN NEB SCH ×6 (02:33→22:37)
[2020-12-22 05:00] VITALS: BP 137/75
[2020-12-22] MEDS: methylPREDNISolone SOD SUCC 40 MG/ML VL IV SCH ×3 (06:08→21:26)
[2020-12-22] MEDS: SODIUM CHLOR 0.9% PF (SALINE LOCK) 10ML VIAL/SYR IV SCH ×3 (06:08→21:26)
[2020-12-22] MEDS: GABAPENTIN 300 MG CAP PO SCH ×3 (06:09→21:27)
[2020-12-22 06:44] LABS: Basophils # (auto) 0 10 ^3/uL (0-0.2); Eosinophils # (auto) 0 10 ^3/uL (0-0.8); Monocytes # (auto) 0.3 10 ^3/uL (0-1.3); Red Cell Distribution Width 17.5 % (11.8-14.3)
[2020-12-22 06:45] LABS: BUN/Creatinine Ratio 30.2; Calcium 8.6 mg/dL (8.5-10.1); Magnesium 2.9 mg/dL (1.6-2.6); Potassium 4.1 mmol/L (3.5-5.1)
[2020-12-22 06:46] LABS: Basophils % (auto) 0.1 % (0.0-2.0); Hemoglobin 12.2 g/dL (13.5-17.5); Lymphocytes # (auto) 0.6 10 ^3/uL (0.4-5.4); Lymphocytes % (auto) 7.6 % (10.0-50.0); Mean Corpuscular Hemoglobin 25.1 pg (28.0-32.0); Neutrophils # (auto) 7.5 10 ^3/uL (1.6-8.6); Neutrophils % (auto) 88.3 % (37.0-80.0); Red Blood Cells 4.87 10^6/uL (4.5-5.90); White Blood Cell 8.5 10^3/uL (4.4-10.8)
[2020-12-22] MEDS: ACETYLCYSTEINE 20%(200MG/ML) SOL 4ML NEB SCH ×3 (07:26→22:38)
[2020-12-22 09:28] VITALS: BP 137/75
[2020-12-22] MEDS: AZITHROMYCIN 500MG/ 250ML 250 ML IV SCH (10:00)
[2020-12-22] MEDS: cefTRIAXone 1GM/50ML D5W 50 ML IV SCH (10:20)
[2020-12-22] MEDS: FAMOTIDINE (10MG/ML) 2ML VL IV SCH ×2 (10:21→21:25)
[2020-12-22] MEDS: FOLIC ACID 1 MG TAB PO SCH (10:26)
[2020-12-22] MEDS: ZINC SULFATE 220mg CAP or TAB PO SCH (10:27)
[2020-12-22] MEDS: CARVEDILOL 12.5 MG TAB PO SCH ×2 (10:28→21:26)
[2020-12-22] MEDS: APIXABAN 5 MG TAB PO SCH ×2 (10:29→21:27)
[2020-12-22] MEDS: DIGOXIN 0.125 MG TAB PO SCH (10:30)
[2020-12-22] MEDS: FUROSEMIDE 20 MG TAB PO SCH (10:31)
[2020-12-22] MEDS: MULTIPLE VITAMIN TAB PO SCH (10:31)
[2020-12-22] MEDS: NIFEdipine ER 30 MG TAB PO SCH ×2 (10:32→21:27)
[2020-12-22] MEDS: ASCORBIC ACID 500 MG TAB PO SCH ×2 (10:33→21:27)
[2020-12-22 13:21] VITALS: BP 137/73
[2020-12-22] MEDS ORDERED: CHOLECALCIFEROL (VITD3) 2,000 UNIT CAP/TAB PO ONE (15:00)
[2020-12-22 17:26] VITALS: BP 131/73
[2020-12-22] MEDS: ATORVASTATIN 20 MG TAB PO SCH (21:27)
[2020-12-22 22:00] VITALS: BP 132/76
[2020-12-22 23:29] VITALS: BP 140/78
[2020-12-23] MEDS: MORPHINE SULFATE INJECTION 2 MG/ML SYRG IV PRN ×5 (01:47→23:43)
[2020-12-23] MEDS: IPRATROPIUM BROM 0.5 MG/2.5ML INH SOL NEB SCH ×6 (02:06→22:52)
[2020-12-23] MEDS: ALBUTEROL SULF 2.5 MG/0.5ML(0.5%) NEB SOLN NEB SCH ×6 (02:06→22:52)
[2020-12-23 05:00] VITALS: BP 141/85
[2020-12-23] MEDS: GABAPENTIN 300 MG CAP PO SCH ×3 (05:56→21:18)
[2020-12-23] MEDS: SODIUM CHLOR 0.9% PF (SALINE LOCK) 10ML VIAL/SYR IV SCH ×3 (05:56→21:17)
[2020-12-23] MEDS: methylPREDNISolone SOD SUCC 40 MG/ML VL IV SCH ×2 (05:56→21:17)
[2020-12-23] MEDS: ACETYLCYSTEINE 20%(200MG/ML) SOL 4ML NEB SCH ×3 (07:21→19:33)
[2020-12-23 09:00] VITALS: BP 123/72
[2020-12-23] MEDS: MULTIPLE VITAMIN TAB PO SCH (09:38)
[2020-12-23] MEDS: ASCORBIC ACID 500 MG TAB PO SCH ×2 (09:38→21:19)
[2020-12-23] MEDS: ZINC SULFATE 220mg CAP or TAB PO SCH (09:38)
[2020-12-23] MEDS: FOLIC ACID 1 MG TAB PO SCH (09:38)
[2020-12-23] MEDS: cefTRIAXone 1GM/50ML D5W 50 ML IV SCH (10:00)
[2020-12-23] MEDS: FAMOTIDINE (10MG/ML) 2ML VL IV SCH ×2 (10:00→21:17)
[2020-12-23] MEDS: DIGOXIN 0.125 MG TAB PO SCH (10:05)
[2020-12-23] MEDS: CARVEDILOL 12.5 MG TAB PO SCH ×2 (10:05→21:18)
[2020-12-23] MEDS: AZITHROMYCIN 500MG/ 250ML 250 ML IV SCH (10:10)
[2020-12-23] MEDS: APIXABAN 5 MG TAB PO SCH ×2 (10:30→21:18)
[2020-12-23] MEDS: CHOLECALCIFEROL (VITD3) 2,000 UNIT CAP/TAB PO SCH (10:30)
[2020-12-23] MEDS: FUROSEMIDE 20 MG TAB PO SCH (10:45)
[2020-12-23] MEDS: NIFEdipine ER 30 MG TAB PO SCH ×2 (11:00→21:19)
[2020-12-23 13:00] VITALS: BP 133/67
[2020-12-23 17:00] VITALS: BP 126/69
[2020-12-23] MEDS: ATORVASTATIN 20 MG TAB PO SCH (21:18)
[2020-12-23 22:00] VITALS: BP 147/83
[2020-12-24] MEDS: IPRATROPIUM BROM 0.5 MG/2.5ML INH SOL NEB SCH ×4 (02:19→13:57)
[2020-12-24] MEDS: ALBUTEROL SULF 2.5 MG/0.5ML(0.5%) NEB SOLN NEB SCH ×4 (02:19→13:57)
[2020-12-24] MEDS: MORPHINE SULFATE INJECTION 2 MG/ML SYRG IV PRN ×2 (03:41→08:30)
[2020-12-24 05:00] VITALS: BP 101/62
[2020-12-24] MEDS: SODIUM CHLOR 0.9% PF (SALINE LOCK) 10ML VIAL/SYR IV SCH ×2 (06:10→14:05)
[2020-12-24] MEDS: GABAPENTIN 300 MG CAP PO SCH ×2 (06:11→15:00)
[2020-12-24] MEDS: ACETYLCYSTEINE 20%(200MG/ML) SOL 4ML NEB SCH ×2 (07:06→13:58)
[2020-12-24] MEDS: cefTRIAXone 1GM/50ML D5W 50 ML IV SCH (08:27)
[2020-12-24] MEDS: MULTIPLE VITAMIN TAB PO SCH (08:28)
[2020-12-24] MEDS: ZINC SULFATE 220mg CAP or TAB PO SCH (08:28)
[2020-12-24] MEDS: CHOLECALCIFEROL (VITD3) 2,000 UNIT CAP/TAB PO SCH (08:28)
[2020-12-24] MEDS: ASCORBIC ACID 500 MG TAB PO SCH (08:29)
[2020-12-24] MEDS: FAMOTIDINE (10MG/ML) 2ML VL IV SCH (08:29)
[2020-12-24] MEDS: methylPREDNISolone SOD SUCC 40 MG/ML VL IV SCH (08:29)
[2020-12-24] MEDS: FOLIC ACID 1 MG TAB PO SCH (08:29)
[2020-12-24] MEDS: AZITHROMYCIN 500MG/ 250ML 250 ML IV SCH (08:30)
[2020-12-24 09:00] VITALS: BP 148/80
[2020-12-24] MEDS: CARVEDILOL 12.5 MG TAB PO SCH (10:00)
[2020-12-24] MEDS: FUROSEMIDE 20 MG TAB PO SCH (10:02)
[2020-12-24] MEDS: NIFEdipine ER 30 MG TAB PO SCH (10:02)
[2020-12-24] MEDS: DIGOXIN 0.125 MG TAB PO SCH (10:05)
[2020-12-24] MEDS ORDERED: LEVO750T8 PO (10:50)
[2020-12-24] MEDS ORDERED: CHOL20007 PO (10:50)
[2020-12-24] MEDS: APIXABAN 5 MG TAB PO SCH (12:00)
[2020-12-24 13:00] VITALS: BP 117/77
[2020-12-24] MEDS: HYDROcodone-ACET 5/325MG TAB PO PRN (13:30)
== END 2020-12-24 17:30 | disposition home or self-care (01) | DRG 193 ==
LOC: ER 16:47 → EDBD 16:47 → TELE 23:23 → TELE-WESTW 12-20 13:40
PROVIDERS: ADMIT Nurse Practitioner Family; ATTEND Internal Medicine
DX: J18.9 Pneumonia, unspecified organism (principal); J96.21 Acute and chronic respiratory failure with hypoxia; I48.19 Other persistent atrial fibrillation; J44.1 Chronic obstructive pulmonary disease with (acute) exacerbation; I50.32 Chronic diastolic (congestive) heart failure; J44.0 Chronic obstructive pulmonary disease with (acute) lower respiratory infection; J20.9 Acute bronchitis, unspecified; D63.8 Anemia in other chronic diseases classified elsewhere; I11.0 Hypertensive heart disease with heart failure; I25.10 Atherosclerotic heart disease of native coronary artery without angina pectoris; I48.91 Unspecified atrial fibrillation; K21.9 Gastro-esophageal reflux disease without esophagitis; E55.9 Vitamin D deficiency, unspecified; M19.90 Unspecified osteoarthritis, unspecified site; R53.81 Other malaise; Z20.822 Contact with and (suspected) exposure to COVID-19; I25.2 Old myocardial infarction; Z87.891 Personal history of nicotine dependence; Z93.3 Colostomy status; Z90.49 Acquired absence of other specified parts of digestive tract; Z95.0 Presence of cardiac pacemaker
CPT/HCPCS: 36415; 71045; 80048; 80053; 80162; 81001; 82306; 83605; 83690; 83735; 83880; 84484; 85025; 87081; 87426; 87804; 93005; 93306; 93886; 94640; 96374; 96375; 96376; G0378; J0696; J2405; J3490

== ENCOUNTER 2021-05-15 17:49 | Inpatient (IN) | payer OTHER, MEDICAID ==
[~2021-05-15] VITALS: Ht 182.9 cm; Wt 97.3 kg
[~2021-05-15 17:49] MED LIST changes: +ALBU108A5 INH; -APIX5TAB PO; -ATOR20TA50 PO; +FOLI1TAB6 PO; +LEVO750T8 PO; +METH2.5T PO; +METO-289 PO; -METO-6 PO; +POTA1TAB64 PO; -PRED20TA2 PO; +RIV20T PO; -SUCR1TAB22 OR; +UMEC1INH INH
[2021-05-15] MEDS ORDERED: LACTATED RINGER'S 1,000 ML IV ONE ×2 (18:00→20:30)
[2021-05-15] MEDS ORDERED: MORPHINE SULFATE 4 MG/ML SYR/VIAL IV ONE ×2 (18:00→20:15)
[2021-05-15 19:44] LABS: Hematocrit 45.6 % (41.0-53.0); Hemoglobin 14.5 g/dL (13.5-17.5); Mean Corpuscular Hemoglobin 22.5 pg (28.0-32.0); Mean Corpuscular Hgb Conc. 31.8 g/dL (32.0-36.0); Mean Corpuscular Volume 70.6 fL (80.0-100.0); Red Blood Cells 6.46 10^6/uL (4.5-5.90)
[2021-05-15 19:50] LABS: Red Cell Distribution Width 21.1 % (11.8-14.3)
[2021-05-15 19:52] LABS: White Blood Cell 30.4 10^3/uL (4.4-10.8)
[2021-05-15 19:54] LABS: Basophils % (manual) 0 (0.0-2.0); Blast Cells 0; Eosinophils % (manual) 0 (0-7); Myelocytes % 0; Promyelocytes % 0; Reactive Lymphocytes 0
[2021-05-15 19:55] LABS: Albumin 3.5 g/dL (3.4-5.0); Calcium 9.2 mg/dL (8.5-10.1); Magnesium 2.7 mg/dL (1.6-2.6); Potassium 3.7 mmol/L (3.5-5.1)
[2021-05-15 19:57] LABS: INR 1.3 (0.9-1.15)
[2021-05-15 19:58] LABS: Lactic Acid w/Reflex 3.1 mmol/L (0.4-2.0)
[2021-05-15 20:00] LABS: BUN/Creatinine Ratio 19.1; Bilirubin, Total 1.1 mg/dL (0.2-1.0); Total Protein 7.1 g/dL (6.4-8.2)
[2021-05-15] MEDS ORDERED: PIPERACILLIN-TAZOB 3.375GM 100 ML IV ONE (20:00)
[2021-05-15] MEDS ORDERED: VANCOMYCIN 1GM/250ML 250 ML IV ONE (20:00)
[2021-05-15 20:41] LABS: Band Neutrophils % (manual) 1; Lymphocytes % (manual) 2 (10.0-50.0); Metamyelocytes % 1; Monocytes % (manual) 3 (0-12)
[2021-05-15] MEDS ORDERED: IOHEXOL 300 MG/ML 100ML BOTTLE IJ ONE (20:45)
[2021-05-15] MEDS ORDERED: LABETALOL HCL 5 MG/ML 4ML SYRINGE IV PRN (21:00)
[2021-05-15] MEDS ORDERED: MORPHINE SULFATE 4 MG/ML SYR/VIAL IV PRN (21:00)
[2021-05-15] MEDS ORDERED: FAMOTIDINE (10MG/ML) 2ML VL IV ONE (21:00)
[2021-05-15] MEDS ORDERED: METOPROLOL TARTRATE 1MG/1ML-5ML VIAL IV PRN (21:45)
[2021-05-15] MEDS ORDERED: LABETALOL HCL 5 MG/ML 4ML SYRINGE IV ONE (21:45)
[2021-05-15] MEDS: SODIUM CHLORIDE 0.9% 1,000 ML IV SCH (22:16)
[2021-05-16] VITALS (43 sets, daily range): BP systolic 105–180; BP diastolic 54–128
[2021-05-16] MEDS ORDERED: dilTIAZem 25 MG/5 ML VIAL IV ONE (00:28)
[2021-05-16] MEDS ORDERED: HYDROmorphone HCL 2 MG/ML VL ONE (00:46)
[2021-05-16] MEDS: dilTIAZem 125mg/125ml BAG KIT 125 ML IV SCH ×2 (03:30→08:55)
[2021-05-16] MEDS: MORPHINE SULFATE 4 MG/ML SYR/VIAL IV PRN ×3 (04:19→20:02)
[2021-05-16] MEDS: ONDANSETRON HCL 4 MG/2 ML VIAL IV PRN ×5 (04:19→20:02)
[2021-05-16 04:57] LABS: Hemoglobin 13.7 g/dL (13.5-17.5)
[2021-05-16 04:59] LABS: Hematocrit 42.1 % (41.0-53.0); Mean Corpuscular Hemoglobin 22.7 pg (28.0-32.0); Mean Corpuscular Hgb Conc. 32.6 g/dL (32.0-36.0); Mean Corpuscular Volume 69.6 fL (80.0-100.0); Red Blood Cells 6.05 10^6/uL (4.5-5.90)
[2021-05-16 05:01] LABS: Red Cell Distribution Width 21.3 % (11.8-14.3)
[2021-05-16 05:02] LABS: Basophils % (manual) 0 (0.0-2.0); Blast Cells 0; Eosinophils % (manual) 0 (0-7); Metamyelocytes % 0; Myelocytes % 0; Promyelocytes % 0; Reactive Lymphocytes 0
[2021-05-16 05:18] LABS: Calcium 8.1 mg/dL (8.5-10.1); Potassium 4.3 mmol/L (3.5-5.1)
[2021-05-16 05:21] LABS: BUN/Creatinine Ratio 23.5; Bilirubin, Total 1.2 mg/dL (0.2-1.0); Total Protein 6.3 g/dL (6.4-8.2)
[2021-05-16] MEDS: PIPERACILLIN-TAZOB 3.375GM 100 ML IV SCH ×3 (06:00→18:00)
[2021-05-16 06:16] LABS: Band Neutrophils % (manual) 12; Lymphocytes % (manual) 3 (10.0-50.0); Monocytes % (manual) 6 (0-12)
[2021-05-16] MEDS: FAMOTIDINE (10MG/ML) 2ML VL IV SCH (09:00)
[2021-05-16] MEDS ORDERED: CHOL20009 PO (09:49)
[2021-05-16] MEDS ORDERED: BUDE1AER4 IN (09:49)
[2021-05-16] MEDS ORDERED: ALBU108A5 INH (09:49)
[2021-05-16] MEDS ORDERED: IPRA0.00 IN (09:49)
[2021-05-16] MEDS ORDERED: BUDE0.5S IN (09:49)
[2021-05-16] MEDS ORDERED: SUCR1TAB PO (09:49)
[2021-05-16] MEDS ORDERED: IPRATROPIUM BROM 0.5 MG/2.5ML INH SOL ONE (11:18)
[2021-05-16] MEDS ORDERED: LEVALBUTEROL HCL 1.25 MG/3 ML NEB ONE (11:18)
[2021-05-16] MEDS ORDERED: HYDROmorphone HCL 2 MG/ML VL IV PRN (12:15)
[2021-05-16] MEDS: SODIUM CHLORIDE 0.9% 1,000 ML IV SCH (12:44)
[2021-05-16] MEDS: IPRATROPIUM BROM 0.5 MG/2.5ML INH SOL NEB PRN ×2 (18:23→22:01)
[2021-05-16] MEDS: LEVALBUTEROL HCL 1.25 MG/3 ML NEB NEB PRN ×2 (18:23→22:01)
[2021-05-16] MEDS: BUDESONIDE (INHALATION) 0.5 MG/2 ML NEB NEB SCH (18:23)
[2021-05-16] MEDS: HYDROmorphone HCL 2 MG/ML VL IV PRN (22:38)
[2021-05-17] VITALS (54 sets, daily range): BP systolic 128–181; BP diastolic 56–122
[2021-05-17] MEDS: dilTIAZem 125mg/125ml BAG KIT 125 ML IV SCH ×2 (02:54→12:10)
[2021-05-17] MEDS: HYDROmorphone HCL 2 MG/ML VL IV PRN ×2 (02:55→06:30)
[2021-05-17] MEDS: ONDANSETRON HCL 4 MG/2 ML VIAL IV PRN ×4 (02:55→16:34)
[2021-05-17] MEDS: MORPHINE SULFATE 4 MG/ML SYR/VIAL IV PRN ×2 (04:36→08:34)
[2021-05-17] MEDS: SODIUM CHLORIDE 0.9% 1,000 ML IV SCH ×2 (04:40→16:23)
[2021-05-17 05:39] LABS: Basophils # (auto) 0 10 ^3/uL (0-0.2); Eosinophils # (auto) 0 10 ^3/uL (0-0.8); Hemoglobin 11.9 g/dL (13.5-17.5); Lymphocytes # (auto) 0.7 10 ^3/uL (0.4-5.4); Monocytes # (auto) 1.3 10 ^3/uL (0-1.3)
[2021-05-17 05:41] LABS: Basophils % (auto) 0.4 % (0.0-2.0); Eosinophils % (auto) 0.1 % (0.0-7.0); Hematocrit 36.4 % (41.0-53.0); Lymphocytes % (auto) 10.1 % (10.0-50.0); Mean Corpuscular Hgb Conc. 32.8 g/dL (32.0-36.0); Mean Corpuscular Volume 70.3 fL (80.0-100.0); Monocytes % (auto) 17.5 % (0.0-12.0); Neutrophils # (auto) 5.3 10 ^3/uL (1.6-8.6); Neutrophils % (auto) 71.9 % (37.0-80.0); Red Blood Cells 5.18 10^6/uL (4.5-5.90); White Blood Cell 7.3 10^3/uL (4.4-10.8)
[2021-05-17 05:42] LABS: Red Cell Distribution Width 21.8 % (11.8-14.3)
[2021-05-17 06:00] LABS: INR 1.16 (0.9-1.15); Potassium 3.8 mmol/L (3.5-5.1)
[2021-05-17 06:07] LABS: Albumin 2.9 g/dL (3.4-5.0); BUN/Creatinine Ratio 22.3; Bilirubin, Total 0.7 mg/dL (0.2-1.0); Calcium 8.2 mg/dL (8.5-10.1); Magnesium 2.7 mg/dL (1.6-2.6); Total Protein 5.9 g/dL (6.4-8.2)
[2021-05-17] MEDS: PIPERACILLIN-TAZOB 3.375GM 100 ML IV SCH ×4 (06:29→17:33)
[2021-05-17] MEDS: BUDESONIDE (INHALATION) 0.5 MG/2 ML NEB NEB SCH ×2 (07:48→18:27)
[2021-05-17] MEDS: IPRATROPIUM BROM 0.5 MG/2.5ML INH SOL NEB PRN ×4 (07:48→18:27)
[2021-05-17] MEDS: LEVALBUTEROL HCL 1.25 MG/3 ML NEB NEB PRN ×4 (07:48→18:27)
[2021-05-17] MEDS: FAMOTIDINE (10MG/ML) 2ML VL IV SCH (10:04)
[2021-05-17] MEDS ORDERED: GASTROGRAFIN 120 ML SOL ONE (13:05)
[2021-05-17] MEDS: MORPHINE SULFATE INJECTION 2 MG/ML SYRG IV PRN ×2 (16:35→20:30)
[2021-05-17] MEDS ORDERED: DIGOXIN (250MCG/ML) 2 ML AMPULE IV ONE (17:00)
[2021-05-18] VITALS (38 sets, daily range): BP systolic 122–175; BP diastolic 64–99
[2021-05-18] MEDS: MORPHINE SULFATE INJECTION 2 MG/ML SYRG IV PRN ×6 (00:30→20:30)
[2021-05-18 05:46] LABS: Basophils # (auto) 0 10 ^3/uL (0-0.2); Basophils % (auto) 0.4 % (0.0-2.0); Eosinophils # (auto) 0 10 ^3/uL (0-0.8); Lymphocytes # (auto) 0.7 10 ^3/uL (0.4-5.4); White Blood Cell 6.9 10^3/uL (4.4-10.8)
[2021-05-18] MEDS: PIPERACILLIN-TAZOB 3.375GM 100 ML IV SCH ×4 (05:55→17:55)
[2021-05-18] MEDS: SODIUM CHLORIDE 0.9% 1,000 ML IV SCH ×2 (05:56→20:57)
[2021-05-18 06:14] LABS: Calcium 8.8 mg/dL (8.5-10.1); Potassium 3.9 mmol/L (3.5-5.1)
[2021-05-18 06:15] LABS: Eosinophils % (auto) 0.3 % (0.0-7.0); Hematocrit 38.3 % (41.0-53.0); Hemoglobin 12.5 g/dL (13.5-17.5); Lymphocytes % (auto) 10.1 % (10.0-50.0); Mean Corpuscular Hemoglobin 23.1 pg (28.0-32.0); Mean Corpuscular Hgb Conc. 32.5 g/dL (32.0-36.0); Monocytes # (auto) 1.2 10 ^3/uL (0-1.3); Monocytes % (auto) 17.1 % (0.0-12.0); Neutrophils % (auto) 72.1 % (37.0-80.0)
[2021-05-18 06:16] LABS: Red Cell Distribution Width 22.3 % (11.8-14.3)
[2021-05-18 06:24] LABS: BUN/Creatinine Ratio 19.5
[2021-05-18] MEDS: BUDESONIDE (INHALATION) 0.5 MG/2 ML NEB NEB SCH ×2 (07:10→18:20)
[2021-05-18] MEDS: LEVALBUTEROL HCL 1.25 MG/3 ML NEB NEB PRN ×5 (07:10→22:38)
[2021-05-18] MEDS: IPRATROPIUM BROM 0.5 MG/2.5ML INH SOL NEB PRN ×5 (07:11→22:38)
[2021-05-18] MEDS: ONDANSETRON HCL 4 MG/2 ML VIAL IV PRN ×3 (08:34→16:46)
[2021-05-18] MEDS: FAMOTIDINE (10MG/ML) 2ML VL IV SCH (11:42)
[2021-05-18] MEDS: dilTIAZem 125mg/125ml BAG KIT 125 ML IV SCH (12:32)
[2021-05-18] MEDS: METOPROLOL SUCCINATE XL 50 MG TAB PO SCH (16:45)
[2021-05-19] VITALS (14 sets, daily range): BP systolic 119–166; BP diastolic 26–100
[2021-05-19] MEDS: PIPERACILLIN-TAZOB 3.375GM 100 ML IV SCH ×4 (00:19→16:59)
[2021-05-19] MEDS: MORPHINE SULFATE INJECTION 2 MG/ML SYRG IV PRN ×3 (00:30→08:28)
[2021-05-19] MEDS: IPRATROPIUM BROM 0.5 MG/2.5ML INH SOL NEB PRN ×3 (03:03→12:18)
[2021-05-19] MEDS: LEVALBUTEROL HCL 1.25 MG/3 ML NEB NEB PRN ×3 (03:03→12:18)
[2021-05-19 06:12] LABS: Basophils # (auto) 0 10 ^3/uL (0-0.2); Basophils % (auto) 0.6 % (0.0-2.0); Eosinophils # (auto) 0.1 10 ^3/uL (0-0.8); Mean Corpuscular Volume 71.4 fL (80.0-100.0); Red Blood Cells 5.19 10^6/uL (4.5-5.90)
[2021-05-19 06:15] LABS: Eosinophils % (auto) 2.2 % (0.0-7.0); Lymphocytes # (auto) 1.2 10 ^3/uL (0.4-5.4); Lymphocytes % (auto) 18.3 % (10.0-50.0); Mean Corpuscular Hemoglobin 23.2 pg (28.0-32.0); Mean Corpuscular Hgb Conc. 32.5 g/dL (32.0-36.0); Monocytes # (auto) 1.1 10 ^3/uL (0-1.3); Monocytes % (auto) 17.1 % (0.0-12.0); Neutrophils # (auto) 4.1 10 ^3/uL (1.6-8.6); Neutrophils % (auto) 61.8 % (37.0-80.0); Nucleated Red Blood Cells % 0.1 %; White Blood Cell 6.6 10^3/uL (4.4-10.8)
[2021-05-19 06:25] LABS: Red Cell Distribution Width 21.8 % (11.8-14.3)
[2021-05-19 06:31] LABS: Calcium 8.6 mg/dL (8.5-10.1); Potassium 3.9 mmol/L (3.5-5.1)
[2021-05-19 06:35] LABS: BUN/Creatinine Ratio 15.5
[2021-05-19] MEDS: BUDESONIDE (INHALATION) 0.5 MG/2 ML NEB NEB SCH ×2 (07:21→23:07)
[2021-05-19] MEDS: ONDANSETRON HCL 4 MG/2 ML VIAL IV PRN (08:27)
[2021-05-19] MEDS: METOPROLOL SUCCINATE XL 50 MG TAB PO SCH ×2 (10:42→21:40)
[2021-05-19] MEDS: FAMOTIDINE (10MG/ML) 2ML VL IV SCH (10:53)
[2021-05-19] MEDS: HYDROcodone-ACET 5/325MG TAB PO PRN ×3 (11:52→20:48)
[2021-05-19] MEDS: RIVAROXABAN 20 MG TAB PO SCH (17:00)
[2021-05-20 05:00] VITALS: BP 118/79
[2021-05-20] MEDS: BUDESONIDE (INHALATION) 0.5 MG/2 ML NEB NEB SCH ×2 (05:51→18:37)
[2021-05-20] MEDS: LEVALBUTEROL HCL 1.25 MG/3 ML NEB NEB PRN ×5 (05:51→22:07)
[2021-05-20] MEDS: IPRATROPIUM BROM 0.5 MG/2.5ML INH SOL NEB PRN ×3 (05:51→22:07)
[2021-05-20 06:12] LABS: Basophils # (auto) 0 10 ^3/uL (0-0.2); Basophils % (auto) 0.4 % (0.0-2.0); Eosinophils # (auto) 0.3 10 ^3/uL (0-0.8); Eosinophils % (auto) 2.7 % (0.0-7.0); Hematocrit 37.9 % (41.0-53.0); Hemoglobin 12.2 g/dL (13.5-17.5); Lymphocytes # (auto) 1.2 10 ^3/uL (0.4-5.4); Lymphocytes % (auto) 12.7 % (10.0-50.0); Mean Corpuscular Hemoglobin 22.8 pg (28.0-32.0); Mean Corpuscular Hgb Conc. 32.3 g/dL (32.0-36.0); Mean Corpuscular Volume 70.6 fL (80.0-100.0); Monocytes # (auto) 1.3 10 ^3/uL (0-1.3); Neutrophils # (auto) 6.5 10 ^3/uL (1.6-8.6); Neutrophils % (auto) 70.2 % (37.0-80.0); Red Blood Cells 5.36 10^6/uL (4.5-5.90); White Blood Cell 9.3 10^3/uL (4.4-10.8)
[2021-05-20 06:13] LABS: Red Cell Distribution Width 21.4 % (11.8-14.3)
[2021-05-20] MEDS: PIPERACILLIN-TAZOB 3.375GM 100 ML IV SCH ×5 (06:22→23:54)
[2021-05-20 06:25] LABS: Calcium 8.8 mg/dL (8.5-10.1); Potassium 3.4 mmol/L (3.5-5.1)
[2021-05-20 06:29] LABS: BUN/Creatinine Ratio 12.1
[2021-05-20 09:00] VITALS: BP 117/69
[2021-05-20] MEDS: FAMOTIDINE (10MG/ML) 2ML VL IV SCH (09:43)
[2021-05-20] MEDS: METOPROLOL SUCCINATE XL 50 MG TAB PO SCH ×2 (09:43→21:59)
[2021-05-20] MEDS ORDERED: POTASSIUM EFFERVESENT TAB 25 MEQ GT ONE (12:00)
[2021-05-20 13:00] VITALS: BP 110/77
[2021-05-20] MEDS ORDERED: MORPHINE SULFATE INJECTION 2 MG/ML SYRG IV ONE ×2 (14:45)
[2021-05-20] MEDS: HYDROcodone-ACET 5/325MG TAB PO PRN (15:10)
[2021-05-20 17:05] VITALS: BP 118/81
[2021-05-20] MEDS: RIVAROXABAN 20 MG TAB PO SCH (18:00)
[2021-05-20 22:00] VITALS: BP 118/76
[2021-05-21] MEDS: LEVALBUTEROL HCL 1.25 MG/3 ML NEB NEB PRN ×3 (02:41→18:54)
[2021-05-21] MEDS: IPRATROPIUM BROM 0.5 MG/2.5ML INH SOL NEB PRN ×3 (02:41→18:54)
[2021-05-21 05:00] VITALS: BP 120/71
[2021-05-21 05:14] LABS: Eosinophils # (auto) 0.2 10 ^3/uL (0-0.8); Red Blood Cells 6.02 10^6/uL (4.5-5.90)
[2021-05-21 05:18] LABS: Basophils # (auto) 0 10 ^3/uL (0-0.2); Basophils % (auto) 0.5 % (0.0-2.0); Eosinophils % (auto) 1.9 % (0.0-7.0); Hematocrit 42.6 % (41.0-53.0); Hemoglobin 13.7 g/dL (13.5-17.5); Lymphocytes # (auto) 1.7 10 ^3/uL (0.4-5.4); Lymphocytes % (auto) 19.7 % (10.0-50.0); Mean Corpuscular Hemoglobin 22.8 pg (28.0-32.0); Mean Corpuscular Hgb Conc. 32.2 g/dL (32.0-36.0); Mean Corpuscular Volume 70.8 fL (80.0-100.0); Monocytes # (auto) 1.3 10 ^3/uL (0-1.3); Monocytes % (auto) 15.1 % (0.0-12.0); Neutrophils # (auto) 5.6 10 ^3/uL (1.6-8.6); Neutrophils % (auto) 62.8 % (37.0-80.0); White Blood Cell 8.9 10^3/uL (4.4-10.8)
[2021-05-21 05:22] LABS: Red Cell Distribution Width 21.7 % (11.8-14.3)
[2021-05-21 05:33] LABS: Potassium 3.7 mmol/L (3.5-5.1)
[2021-05-21] MEDS: BUDESONIDE (INHALATION) 0.5 MG/2 ML NEB NEB SCH ×2 (05:36→18:54)
[2021-05-21 05:37] LABS: BUN/Creatinine Ratio 13.8; Calcium 9.9 mg/dL (8.5-10.1)
[2021-05-21] MEDS: PIPERACILLIN-TAZOB 3.375GM 100 ML IV SCH ×3 (05:50→18:00)
[2021-05-21 09:00] VITALS: BP 106/69
[2021-05-21] MEDS: FAMOTIDINE (10MG/ML) 2ML VL IV SCH (09:32)
[2021-05-21] MEDS: METOPROLOL SUCCINATE XL 50 MG TAB PO SCH (09:39)
[2021-05-21] MEDS: HYDROcodone-ACET 5/325MG TAB PO PRN (10:01)
[2021-05-21] MEDS ORDERED: AMOX500T86 PO (10:04)
[2021-05-21 13:00] VITALS: BP 116/78
[2021-05-21 17:00] VITALS: BP 117/71
[2021-05-21 17:49] VITALS: BP 117/71
[2021-05-21] MEDS: RIVAROXABAN 20 MG TAB PO SCH (18:00)
== END 2021-05-21 18:48 | disposition home or self-care (01) | DRG 872 ==
LOC: EDBD 17:49 → ER 18:02 → TELE 20:47 → DOU IN ICU 22:57 → ICU CENTRL 05-17 05:31 → TELE-CENTR 05-19 16:12
PROVIDERS: ADMIT Internal Medicine; ATTEND Internal Medicine Pulmonary Disease
PROC: 05HB33Z Insertion of Infusion Device into Right Basilic Vein, Percutaneous Approach (ICD-10-PCS; principal; 2021-05-16)
PROC: B54MZZA Ultrasonography of Right Upper Extremity Veins, Guidance (ICD-10-PCS; 2021-05-16)
PROC: 05HC33Z Insertion of Infusion Device into Left Basilic Vein, Percutaneous Approach (ICD-10-PCS; 2021-05-16)
PROC: B54NZZA Ultrasonography of Left Upper Extremity Veins, Guidance (ICD-10-PCS; 2021-05-16)
DX: A41.9 Sepsis, unspecified organism (principal); K56.609 Unspecified intestinal obstruction, unspecified as to partial versus complete obstruction; K51.90 Ulcerative colitis, unspecified, without complications; I50.32 Chronic diastolic (congestive) heart failure; J96.11 Chronic respiratory failure with hypoxia; I48.19 Other persistent atrial fibrillation; J44.1 Chronic obstructive pulmonary disease with (acute) exacerbation; I25.10 Atherosclerotic heart disease of native coronary artery without angina pectoris; E66.9 Obesity, unspecified; K21.9 Gastro-esophageal reflux disease without esophagitis; R79.89 Other specified abnormal findings of blood chemistry; Z20.822 Contact with and (suspected) exposure to COVID-19; I11.0 Hypertensive heart disease with heart failure; Z68.29 Body mass index [BMI] 29.0-29.9, adult; Z79.01 Long term (current) use of anticoagulants; Z87.891 Personal history of nicotine dependence; Z90.49 Acquired absence of other specified parts of digestive tract; Z95.0 Presence of cardiac pacemaker; Z93.2 Ileostomy status
CPT/HCPCS: 36415; 71045; 74177; 74250; 80048; 80053; 83605; 83735; 84484; 85007; 85025; 85027; 85610; 87040; 87081; 93005; 94640; 96361; 96365; 96367; 96375; 96376; 99291; G0378; J2405; J2543; J3490; J7060

== ENCOUNTER 2021-12-25 14:26 | Inpatient (IN) | payer OTHER, MEDICAID ==
[~2021-12-25] VITALS: Ht 172.7 cm; Wt 90.1 kg
[~2021-12-25 14:26] MED LIST changes: +AMOX500T86 PO; +BUDE0.5S IN; +BUDE1AER4 IN; +CHOL20009 PO; -DIGO0.12 PO; -LEVO750T8 PO
[2021-12-25] MEDS ORDERED: dilTIAZem 125mg/125ml BAG KIT 125 ML IV ONE (15:00)
[2021-12-25] MEDS ORDERED: dilTIAZem 25 MG/5 ML VIAL IV ONE (15:00)
[2021-12-25 15:29] LABS: Basophils # (auto) 0.1 10 ^3/uL (0-0.2); Basophils % (auto) 0.9 % (0.0-2.0); Eosinophils # (auto) 0.1 10 ^3/uL (0-0.8); Eosinophils % (auto) 0.6 % (0.0-7.0); Hematocrit 43.3 % (41.0-53.0); Hemoglobin 14.6 g/dL (13.5-17.5); Lymphocytes # (auto) 1.4 10 ^3/uL (0.4-5.4); Mean Corpuscular Hemoglobin 25.1 pg (28.0-32.0); Mean Corpuscular Hgb Conc. 33.6 g/dL (32.0-36.0); Mean Corpuscular Volume 74.7 fL (80.0-100.0); Monocytes # (auto) 0.9 10 ^3/uL (0-1.3); Monocytes % (auto) 8.4 % (0.0-12.0); Neutrophils # (auto) 8.2 10 ^3/uL (1.6-8.6); Neutrophils % (auto) 77.1 % (37.0-80.0); Red Blood Cells 5.79 10^6/uL (4.5-5.90); Red Cell Distribution Width 19.8 % (11.8-14.3); White Blood Cell 10.7 10^3/uL (4.4-10.8)
[2021-12-25 15:48] LABS: Albumin 3.6 g/dL (3.4-5.0); Calcium 9.3 mg/dL (8.5-10.1); Potassium 4.7 mmol/L (3.5-5.1)
[2021-12-25 15:49] LABS: INR 1.08 (0.9-1.15); Partial Thromboplastin Time 30.5 sec (24.6-33.4)
[2021-12-25 15:51] LABS: BUN/Creatinine Ratio 12.7; Bilirubin, Total 0.7 mg/dL (0.2-1.0); Total Protein 7.3 g/dL (6.4-8.2)
[2021-12-25] MEDS ORDERED: MORPHINE SULFATE INJ 2 MG/ml SYRG IV PRN (17:30)
[2021-12-25] MEDS ORDERED: cefTRIAXone 1GM/50ML D5W 50 ML IV ONE (17:30)
[2021-12-25] MEDS ORDERED: AZITHROMYCIN 500MG/ 250ML 250 ML IV ONE (17:30)
[2021-12-25] MEDS ORDERED: NITROGLYCERIN 0.4 MG SL TAB SL PRN (17:30)
[2021-12-25 18:24] LABS: Urine Amorphous Crystal FEW /hpf (None Seen); Urine Bacteria NONE SEEN /hpf (None Seen); Urine WBC 4077 /hpf (0 - 3); Urine WBC Clumps PRESENT /hpf (None Seen)
[2021-12-25 18:41] LABS: Urine Specific Gravity 1.015 (1.001-1.035)
[2021-12-25 18:42] LABS: Urine Blood 3+ /uL (Negative)
[2021-12-25] MEDS: NYSTATIN TOPICAL CREAM 15GM TOP SCH (19:04)
[2021-12-25 19:35] LABS: INR 1.11 (0.9-1.15)
[2021-12-25 20:02] LABS: Cholesterol 130 mg/dL (< 200)
[2021-12-25 20:04] LABS: HDL Cholesterol 54 mg/dL (40-59); LDL Cholesterol 68 mg/dL (< 100); Triglycerides 77 mg/dL (< 150)
[2021-12-25] MEDS: ALBUTEROL SULF 2.5 MG/0.5ML(0.5%) NEB SOLN NEB PRN (22:18)
[2021-12-25] MEDS: IPRATROPIUM BROM 0.5 MG/2.5ML INH SOL NEB PRN (22:18)
[2021-12-25 23:00] VITALS: BP 162/100
[2021-12-25 23:14] VITALS: BP 162/100
[2021-12-26] MEDS ORDERED: ALBU108A5 IN (03:51)
[2021-12-26] MEDS ORDERED: METO-289 PO (03:51)
[2021-12-26] MEDS: IPRATROPIUM BROM 0.5 MG/2.5ML INH SOL NEB PRN ×2 (04:26→10:01)
[2021-12-26] MEDS: ALBUTEROL SULF 2.5 MG/0.5ML(0.5%) NEB SOLN NEB PRN ×2 (04:26→10:01)
[2021-12-26 05:00] VITALS: BP 107/83
[2021-12-26 06:13] LABS: Basophils # (auto) 0.1 10 ^3/uL (0-0.2); Basophils % (auto) 0.7 % (0.0-2.0); Eosinophils # (auto) 0.1 10 ^3/uL (0-0.8); Hematocrit 40.2 % (41.0-53.0); Hemoglobin 13.3 g/dL (13.5-17.5); Lymphocytes # (auto) 1.3 10 ^3/uL (0.4-5.4); Lymphocytes % (auto) 14.6 % (10.0-50.0); Mean Corpuscular Hemoglobin 24.9 pg (28.0-32.0); Mean Corpuscular Hgb Conc. 33.2 g/dL (32.0-36.0); Mean Corpuscular Volume 75.1 fL (80.0-100.0); Monocytes # (auto) 0.8 10 ^3/uL (0-1.3); Monocytes % (auto) 9.6 % (0.0-12.0); Neutrophils # (auto) 6.5 10 ^3/uL (1.6-8.6); Neutrophils % (auto) 74.1 % (37.0-80.0); Nucleated Red Blood Cells % 0.1 %; Red Blood Cells 5.35 10^6/uL (4.5-5.90); White Blood Cell 8.7 10^3/uL (4.4-10.8)
[2021-12-26 06:26] LABS: Albumin 3.2 g/dL (3.4-5.0); Calcium 8.8 mg/dL (8.5-10.1); Potassium 3.8 mmol/L (3.5-5.1)
[2021-12-26 06:31] LABS: BUN/Creatinine Ratio 13.9; Bilirubin, Total 0.9 mg/dL (0.2-1.0); Total Protein 6.9 g/dL (6.4-8.2)
[2021-12-26] MEDS ORDERED: cefTRIAXone 1GM/50ML D5W 50 ML IV SCH (09:00)
[2021-12-26 09:10] VITALS: BP 123/85
[2021-12-26] MEDS ORDERED: AZITHROMYCIN 500MG/ 250ML 250 ML IV SCH (10:00)
[2021-12-26] MEDS: NYSTATIN TOPICAL CREAM 15GM TOP SCH ×2 (10:25→22:05)
[2021-12-26 11:11] VITALS: BP 123/85
[2021-12-26 12:38] VITALS: BP 141/94
[2021-12-26] MEDS ORDERED: METOPROLOL SUCCINATE XL 50 MG TAB PO ONE (14:30)
[2021-12-26] MEDS ORDERED: predniSONE 20 MG TAB PO ONE (14:45)
[2021-12-26] MEDS: ALBUTEROL SULF 2.5 MG/0.5ML(0.5%) NEB SOLN NEB SCH ×3 (15:29→21:51)
[2021-12-26] MEDS: IPRATROPIUM BROM 0.5 MG/2.5ML INH SOL NEB SCH ×3 (15:29→21:51)
[2021-12-26 16:45] VITALS: BP 135/85
[2021-12-26] MEDS: FUROSEMIDE 40 MG TAB PO SCH (16:54)
[2021-12-26] MEDS: GABAPENTIN 100 MG CAP PO SCH (21:14)
[2021-12-26 22:00] VITALS: BP 122/85
[2021-12-26] MEDS: ACETAMINOPHEN 325 MG TAB PO PRN (22:34)
[2021-12-27] MEDS: IPRATROPIUM BROM 0.5 MG/2.5ML INH SOL NEB SCH ×6 (02:01→22:46)
[2021-12-27] MEDS: ALBUTEROL SULF 2.5 MG/0.5ML(0.5%) NEB SOLN NEB SCH ×6 (02:01→22:46)
[2021-12-27 05:00] VITALS: BP 130/91
[2021-12-27] MEDS: GABAPENTIN 100 MG CAP PO SCH ×3 (07:17→20:35)
[2021-12-27] MEDS: ACETAMINOPHEN 325 MG TAB PO PRN ×2 (07:30→20:45)
[2021-12-27 09:06] VITALS: BP 160/81
[2021-12-27] MEDS: RIVAROXABAN 20 MG TAB PO SCH (09:43)
[2021-12-27] MEDS: FUROSEMIDE 40 MG TAB PO SCH (09:43)
[2021-12-27] MEDS: METOPROLOL SUCCINATE XL 50 MG TAB PO SCH (09:44)
[2021-12-27] MEDS: predniSONE 20 MG TAB PO SCH (09:44)
[2021-12-27] MEDS: NYSTATIN TOPICAL CREAM 15GM TOP SCH ×2 (09:55→20:35)
[2021-12-27] MEDS ORDERED: METOPROLOL SUCCINATE XL 50 MG TAB PO SCH (10:00)
[2021-12-27 13:00] VITALS: BP 101/82
[2021-12-27 17:30] VITALS: BP 113/87
[2021-12-27 22:00] VITALS: BP 120/79
[2021-12-28] MEDS: ALBUTEROL SULF 2.5 MG/0.5ML(0.5%) NEB SOLN NEB SCH ×6 (01:54→21:30)
[2021-12-28] MEDS: IPRATROPIUM BROM 0.5 MG/2.5ML INH SOL NEB SCH ×6 (01:54→21:30)
[2021-12-28 05:00] VITALS: BP 114/77
[2021-12-28] MEDS: GABAPENTIN 100 MG CAP PO SCH ×3 (05:09→21:20)
[2021-12-28 09:00] VITALS: BP 126/90
[2021-12-28] MEDS: predniSONE 20 MG TAB PO SCH (10:33)
[2021-12-28] MEDS: METOPROLOL SUCCINATE XL 50 MG TAB PO SCH (10:35)
[2021-12-28] MEDS: RIVAROXABAN 20 MG TAB PO SCH (10:36)
[2021-12-28] MEDS: FUROSEMIDE 40 MG TAB PO SCH (10:36)
[2021-12-28] MEDS: NYSTATIN TOPICAL CREAM 15GM TOP SCH ×2 (10:38→21:21)
[2021-12-28] MEDS: ACETAMINOPHEN 325 MG TAB PO PRN (10:54)
[2021-12-28 12:45] VITALS: BP 118/80
[2021-12-28 16:56] VITALS: BP 137/86
[2021-12-28] MEDS ORDERED: methylPREDNISolone SOD SUCC 40 MG/ML VL IV ONE ×2 (19:00→20:15)
[2021-12-28] MEDS ORDERED: levoFLOXacin 500 MG TAB PO ONE (19:00)
[2021-12-28] MEDS ORDERED: IPRATROPIUM BROM 0.5 MG/2.5ML INH SOL NEB PRN (19:00)
[2021-12-28] MEDS ORDERED: ALBUTEROL SULF 2.5 MG/0.5ML(0.5%) NEB SOLN NEB PRN (19:00)
[2021-12-28] MEDS: methylPREDNISolone SOD SUCC 40 MG/ML VL IV SCH (21:08)
[2021-12-28 22:00] VITALS: BP 120/88
[2021-12-29] VITALS (7 sets, daily range): BP systolic 126–139; BP diastolic 68–87
[2021-12-29] MEDS: IPRATROPIUM BROM 0.5 MG/2.5ML INH SOL NEB SCH ×6 (01:36→22:12)
[2021-12-29] MEDS: ALBUTEROL SULF 2.5 MG/0.5ML(0.5%) NEB SOLN NEB SCH ×6 (01:36→22:12)
[2021-12-29] MEDS: methylPREDNISolone SOD SUCC 40 MG/ML VL IV SCH ×3 (06:23→23:43)
[2021-12-29] MEDS: GABAPENTIN 100 MG CAP PO SCH ×3 (06:24→22:29)
[2021-12-29] MEDS: ACETAMINOPHEN 325 MG TAB PO PRN ×2 (06:24→22:30)
[2021-12-29 06:37] LABS: Basophils # (auto) 0 10 ^3/uL (0-0.2); Basophils % (auto) 0.1 % (0.0-2.0); Eosinophils # (auto) 0 10 ^3/uL (0-0.8); Hematocrit 39.2 % (41.0-53.0); Lymphocytes # (auto) 0.7 10 ^3/uL (0.4-5.4); Lymphocytes % (auto) 8.7 % (10.0-50.0); Mean Corpuscular Hemoglobin 25.2 pg (28.0-32.0); Mean Corpuscular Hgb Conc. 33.3 g/dL (32.0-36.0); Mean Corpuscular Volume 75.9 fL (80.0-100.0); Monocytes # (auto) 0.1 10 ^3/uL (0-1.3); Monocytes % (auto) 1.8 % (0.0-12.0); Neutrophils # (auto) 6.8 10 ^3/uL (1.6-8.6); Neutrophils % (auto) 89.4 % (37.0-80.0); Red Blood Cells 5.16 10^6/uL (4.5-5.90); Red Cell Distribution Width 19.5 % (11.8-14.3); White Blood Cell 7.6 10^3/uL (4.4-10.8)
[2021-12-29 06:50] LABS: Potassium 4.7 mmol/L (3.5-5.1)
[2021-12-29 07:05] LABS: Albumin 3.3 g/dL (3.4-5.0); BUN/Creatinine Ratio 35.5; Bilirubin, Total 0.8 mg/dL (0.2-1.0); Calcium 9.4 mg/dL (8.5-10.1); Total Protein 6.8 g/dL (6.4-8.2)
[2021-12-29] MEDS: RIVAROXABAN 20 MG TAB PO SCH (09:16)
[2021-12-29] MEDS: levoFLOXacin 500 MG TAB PO SCH (09:16)
[2021-12-29] MEDS: METOPROLOL SUCCINATE XL 50 MG TAB PO SCH (09:17)
[2021-12-29] MEDS: FUROSEMIDE 40 MG TAB PO SCH (09:18)
[2021-12-29] MEDS: NYSTATIN TOPICAL CREAM 15GM TOP SCH ×2 (09:40→22:39)
[2021-12-30 05:00] VITALS: BP 144/90
[2021-12-30] MEDS: GABAPENTIN 100 MG CAP PO SCH ×3 (06:08→23:12)
[2021-12-30] MEDS: methylPREDNISolone SOD SUCC 40 MG/ML VL IV SCH (06:08)
[2021-12-30] MEDS: ALBUTEROL SULF 2.5 MG/0.5ML(0.5%) NEB SOLN NEB SCH ×5 (06:29→22:46)
[2021-12-30] MEDS: IPRATROPIUM BROM 0.5 MG/2.5ML INH SOL NEB SCH ×5 (06:29→22:46)
[2021-12-30 06:47] LABS: Albumin 3.4 g/dL (3.4-5.0); BUN/Creatinine Ratio 29.8; Calcium 9.8 mg/dL (8.5-10.1); Potassium 4.6 mmol/L (3.5-5.1)
[2021-12-30 06:50] LABS: Basophils # (auto) 0 10 ^3/uL (0-0.2); Eosinophils # (auto) 0 10 ^3/uL (0-0.8); Monocytes # (auto) 0.3 10 ^3/uL (0-1.3)
[2021-12-30 06:51] LABS: Basophils % (auto) 0.1 % (0.0-2.0); Hematocrit 42.5 % (41.0-53.0); Hemoglobin 14.1 g/dL (13.5-17.5); Lymphocytes # (auto) 0.8 10 ^3/uL (0.4-5.4); Lymphocytes % (auto) 7.5 % (10.0-50.0); Mean Corpuscular Hemoglobin 25.5 pg (28.0-32.0); Mean Corpuscular Hgb Conc. 33.2 g/dL (32.0-36.0); Mean Corpuscular Volume 76.6 fL (80.0-100.0); Neutrophils # (auto) 9.2 10 ^3/uL (1.6-8.6); Neutrophils % (auto) 89.4 % (37.0-80.0); Red Blood Cells 5.55 10^6/uL (4.5-5.90); White Blood Cell 10.3 10^3/uL (4.4-10.8)
[2021-12-30 06:53] LABS: Bilirubin, Total 0.3 mg/dL (0.2-1.0); Total Protein 6.8 g/dL (6.4-8.2)
[2021-12-30 06:59] LABS: Red Cell Distribution Width 20.1 % (11.8-14.3)
[2021-12-30 09:00] VITALS: BP 138/97
[2021-12-30] MEDS: METOPROLOL SUCCINATE XL 50 MG TAB PO SCH (10:38)
[2021-12-30] MEDS: RIVAROXABAN 20 MG TAB PO SCH (10:39)
[2021-12-30] MEDS: FUROSEMIDE 40 MG TAB PO SCH (10:39)
[2021-12-30] MEDS: levoFLOXacin 500 MG TAB PO SCH (10:39)
[2021-12-30] MEDS: NYSTATIN TOPICAL CREAM 15GM TOP SCH ×2 (10:40→23:16)
[2021-12-30] MEDS: ACETAMINOPHEN 325 MG TAB PO PRN (10:49)
[2021-12-30 13:00] VITALS: BP 138/89
[2021-12-30] MEDS ORDERED: BUDESONIDE (INHALATION) 0.5 MG/2 ML NEB NEB ONE (13:00)
[2021-12-30] MEDS ORDERED: cefTRIAXone 1GM/50ML D5W 50 ML IV ONE (13:00)
[2021-12-30] MEDS ORDERED: AZITHROMYCIN 500MG/ 250ML 250 ML IV ONE (13:00)
[2021-12-30] MEDS: methylPREDNISolone SOD SUCC 125 MG/2 ML VL IV SCH ×2 (13:45→23:11)
[2021-12-30] MEDS ORDERED: methylPREDNISolone SOD SUCC 40 MG/ML VL IV SCH (14:00)
[2021-12-30] MEDS: ACETYLCYSTEINE 10 %(100MG/ML) SOL 4ML NEB SCH ×3 (14:01→22:46)
[2021-12-30 17:00] VITALS: BP 127/91
[2021-12-30 22:00] VITALS: BP 125/81
[2021-12-30] MEDS: BUDESONIDE (INHALATION) 0.5 MG/2 ML NEB NEB SCH (22:47)
[2021-12-31] MEDS: ACETYLCYSTEINE 10 %(100MG/ML) SOL 4ML NEB SCH ×5 (02:14→19:21)
[2021-12-31] MEDS: ALBUTEROL SULF 2.5 MG/0.5ML(0.5%) NEB SOLN NEB SCH ×5 (02:14→19:19)
[2021-12-31] MEDS: IPRATROPIUM BROM 0.5 MG/2.5ML INH SOL NEB SCH ×5 (02:15→19:18)
[2021-12-31 05:00] VITALS: BP 126/94
[2021-12-31 05:17] LABS: Basophils # (auto) 0 10 ^3/uL (0-0.2); Basophils % (auto) 0.1 % (0.0-2.0); Eosinophils # (auto) 0 10 ^3/uL (0-0.8); Hematocrit 43.3 % (41.0-53.0); Hemoglobin 14.5 g/dL (13.5-17.5); Lymphocytes # (auto) 0.7 10 ^3/uL (0.4-5.4); Lymphocytes % (auto) 6.2 % (10.0-50.0); Mean Corpuscular Hemoglobin 25.6 pg (28.0-32.0); Mean Corpuscular Hgb Conc. 33.5 g/dL (32.0-36.0); Mean Corpuscular Volume 76.6 fL (80.0-100.0); Monocytes # (auto) 0.2 10 ^3/uL (0-1.3); Neutrophils # (auto) 10.1 10 ^3/uL (1.6-8.6); Neutrophils % (auto) 91.7 % (37.0-80.0); Red Blood Cells 5.64 10^6/uL (4.5-5.90); Red Cell Distribution Width 19.7 % (11.8-14.3)
[2021-12-31 05:44] LABS: Potassium 4.4 mmol/L (3.5-5.1)
[2021-12-31 05:57] LABS: Albumin 3.3 g/dL (3.4-5.0); BUN/Creatinine Ratio 32.5; Bilirubin, Total 0.4 mg/dL (0.2-1.0); Calcium 9.4 mg/dL (8.5-10.1); Total Protein 6.9 g/dL (6.4-8.2)
[2021-12-31] MEDS: methylPREDNISolone SOD SUCC 125 MG/2 ML VL IV SCH ×3 (06:50→21:41)
[2021-12-31] MEDS: GABAPENTIN 100 MG CAP PO SCH ×3 (06:50→21:41)
[2021-12-31 09:00] VITALS: BP 160/114
[2021-12-31] MEDS ORDERED: cefTRIAXone 1GM/50ML D5W 50 ML IV SCH (09:00)
[2021-12-31] MEDS: ACETAMINOPHEN 325 MG TAB PO PRN ×2 (09:01→17:24)
[2021-12-31] MEDS ORDERED: levoFLOXacin 500 MG TAB PO SCH (10:00)
[2021-12-31] MEDS ORDERED: AZITHROMYCIN 500MG/ 250ML 250 ML IV SCH (10:00)
[2021-12-31] MEDS: FUROSEMIDE 40 MG TAB PO SCH (10:03)
[2021-12-31] MEDS: METOPROLOL SUCCINATE XL 50 MG TAB PO SCH (10:03)
[2021-12-31] MEDS: NYSTATIN TOPICAL CREAM 15GM TOP SCH ×2 (10:04→21:45)
[2021-12-31] MEDS: RIVAROXABAN 20 MG TAB PO SCH (10:04)
[2021-12-31] MEDS: BUDESONIDE (INHALATION) 0.5 MG/2 ML NEB NEB SCH (10:06)
[2021-12-31 12:58] VITALS: BP 127/89
[2021-12-31] MEDS: MEROPENEM 1GM IVPB 100 ML IV SCH ×2 (14:06→21:42)
[2021-12-31 16:52] VITALS: BP 124/79
[2021-12-31 20:00] VITALS: BP 124/84
[2021-12-31 22:00] VITALS: BP 124/84
[2022-01-01] MEDS: ALBUTEROL SULF 2.5 MG/0.5ML(0.5%) NEB SOLN NEB SCH ×7 (01:34→22:38)
[2022-01-01] MEDS: IPRATROPIUM BROM 0.5 MG/2.5ML INH SOL NEB SCH ×7 (01:34→22:38)
[2022-01-01] MEDS: ACETYLCYSTEINE 10 %(100MG/ML) SOL 4ML NEB SCH ×7 (01:34→22:38)
[2022-01-01] MEDS: BUDESONIDE (INHALATION) 0.5 MG/2 ML NEB NEB SCH ×3 (01:36→22:38)
[2022-01-01 05:00] VITALS: BP 158/105
[2022-01-01 05:35] LABS: Basophils # (auto) 0 10 ^3/uL (0-0.2); Eosinophils # (auto) 0 10 ^3/uL (0-0.8); Hematocrit 42.3 % (41.0-53.0); Hemoglobin 13.8 g/dL (13.5-17.5); Lymphocytes # (auto) 0.6 10 ^3/uL (0.4-5.4); Lymphocytes % (auto) 6.9 % (10.0-50.0); Mean Corpuscular Hemoglobin 25.1 pg (28.0-32.0); Mean Corpuscular Hgb Conc. 32.7 g/dL (32.0-36.0); Mean Corpuscular Volume 76.9 fL (80.0-100.0); Monocytes # (auto) 0.3 10 ^3/uL (0-1.3); Monocytes % (auto) 3.9 % (0.0-12.0); Neutrophils # (auto) 7.2 10 ^3/uL (1.6-8.6); Neutrophils % (auto) 89.2 % (37.0-80.0); Nucleated Red Blood Cells % 0.1 %; Red Cell Distribution Width 19.7 % (11.8-14.3)
[2022-01-01 05:47] LABS: Albumin 2.9 g/dL (3.4-5.0); BUN/Creatinine Ratio 36.6; Calcium 9.1 mg/dL (8.5-10.1); Potassium 4.3 mmol/L (3.5-5.1)
[2022-01-01] MEDS: GABAPENTIN 100 MG CAP PO SCH ×3 (05:48→21:06)
[2022-01-01 05:50] LABS: Bilirubin, Total 0.4 mg/dL (0.2-1.0); Total Protein 6.2 g/dL (6.4-8.2)
[2022-01-01] MEDS: methylPREDNISolone SOD SUCC 125 MG/2 ML VL IV SCH ×4 (05:50→21:06)
[2022-01-01] MEDS: MEROPENEM 1GM IVPB 100 ML IV SCH ×3 (05:51→21:06)
[2022-01-01 09:00] VITALS: BP 111/87
[2022-01-01] MEDS ORDERED: cefTRIAXone 1GM/50ML D5W 50 ML IV SCH (09:00)
[2022-01-01] MEDS: FUROSEMIDE 40 MG TAB PO SCH (10:46)
[2022-01-01] MEDS: METOPROLOL SUCCINATE XL 50 MG TAB PO SCH (10:46)
[2022-01-01] MEDS: NYSTATIN TOPICAL CREAM 15GM TOP SCH ×2 (10:47→21:07)
[2022-01-01] MEDS: RIVAROXABAN 20 MG TAB PO SCH (10:47)
[2022-01-01] MEDS ORDERED: HYDROcodone-ACET 5/325MG TAB PO PRN (12:30)
[2022-01-01] MEDS: HYDROcodone-ACET 5/325MG TAB PO PRN ×2 (12:45→18:40)
[2022-01-01 13:00] VITALS: BP 126/70
[2022-01-01 16:57] VITALS: BP 128/85
[2022-01-01 22:00] VITALS: BP 117/70
[2022-01-02] MEDS: IPRATROPIUM BROM 0.5 MG/2.5ML INH SOL NEB SCH ×6 (02:57→22:42)
[2022-01-02] MEDS: ALBUTEROL SULF 2.5 MG/0.5ML(0.5%) NEB SOLN NEB SCH ×6 (02:57→22:43)
[2022-01-02] MEDS: ACETYLCYSTEINE 10 %(100MG/ML) SOL 4ML NEB SCH ×5 (02:57→22:43)
[2022-01-02 05:00] VITALS: BP 142/91
[2022-01-02] MEDS: methylPREDNISolone SOD SUCC 125 MG/2 ML VL IV SCH ×3 (05:06→21:28)
[2022-01-02] MEDS: MEROPENEM 1GM IVPB 100 ML IV SCH (05:06)
[2022-01-02] MEDS: GABAPENTIN 100 MG CAP PO SCH ×3 (05:06→21:28)
[2022-01-02] MEDS: HYDROcodone-ACET 5/325MG TAB PO PRN ×3 (06:20→21:30)
[2022-01-02 06:32] LABS: Basophils # (auto) 0 10 ^3/uL (0-0.2); Basophils % (auto) 0.1 % (0.0-2.0); Eosinophils # (auto) 0 10 ^3/uL (0-0.8); Hemoglobin 13.9 g/dL (13.5-17.5); Lymphocytes # (auto) 0.6 10 ^3/uL (0.4-5.4); Monocytes # (auto) 0.3 10 ^3/uL (0-1.3); Neutrophils # (auto) 6.8 10 ^3/uL (1.6-8.6)
[2022-01-02 06:35] LABS: Hematocrit 41.3 % (41.0-53.0); Lymphocytes % (auto) 7.5 % (10.0-50.0); Mean Corpuscular Hemoglobin 25.7 pg (28.0-32.0); Mean Corpuscular Hgb Conc. 33.7 g/dL (32.0-36.0); Mean Corpuscular Volume 76.4 fL (80.0-100.0); Monocytes % (auto) 4.2 % (0.0-12.0); Neutrophils % (auto) 88.2 % (37.0-80.0); Red Cell Distribution Width 19.8 % (11.8-14.3); White Blood Cell 7.8 10^3/uL (4.4-10.8)
[2022-01-02 07:11] LABS: Potassium 4.8 mmol/L (3.5-5.1)
[2022-01-02 07:23] LABS: Albumin 2.8 g/dL (3.4-5.0); BUN/Creatinine Ratio 35.6; Bilirubin, Total 0.5 mg/dL (0.2-1.0); Calcium 8.7 mg/dL (8.5-10.1); Total Protein 5.6 g/dL (6.4-8.2)
[2022-01-02 08:00] VITALS: BP 138/90
[2022-01-02] MEDS: BUDESONIDE (INHALATION) 0.5 MG/2 ML NEB NEB SCH ×2 (09:35→22:43)
[2022-01-02] MEDS: NYSTATIN TOPICAL CREAM 15GM TOP SCH ×2 (10:18→21:29)
[2022-01-02] MEDS: METOPROLOL SUCCINATE XL 50 MG TAB PO SCH (10:19)
[2022-01-02] MEDS: FUROSEMIDE 40 MG TAB PO SCH (10:20)
[2022-01-02] MEDS: RIVAROXABAN 20 MG TAB PO SCH (10:20)
[2022-01-02] MEDS: levoFLOXacin 500 MG TAB PO SCH (10:33)
[2022-01-02 11:50] VITALS: BP 137/88
[2022-01-02 16:30] VITALS: BP 121/71
[2022-01-02 22:00] VITALS: BP 110/79
[2022-01-03] MEDS: IPRATROPIUM BROM 0.5 MG/2.5ML INH SOL NEB SCH ×4 (02:02→14:06)
[2022-01-03] MEDS: ACETYLCYSTEINE 10 %(100MG/ML) SOL 4ML NEB SCH ×4 (02:02→14:07)
[2022-01-03] MEDS: ALBUTEROL SULF 2.5 MG/0.5ML(0.5%) NEB SOLN NEB SCH ×4 (02:02→14:06)
[2022-01-03 05:00] VITALS: BP 130/88
[2022-01-03] MEDS: GABAPENTIN 100 MG CAP PO SCH ×2 (05:47→14:35)
[2022-01-03] MEDS: HYDROcodone-ACET 5/325MG TAB PO PRN ×2 (05:48→10:37)
[2022-01-03] MEDS: methylPREDNISolone SOD SUCC 125 MG/2 ML VL IV SCH (05:48)
[2022-01-03] MEDS: BUDESONIDE (INHALATION) 0.5 MG/2 ML NEB NEB SCH (06:06)
[2022-01-03 07:24] LABS: Basophils # (auto) 0 10 ^3/uL (0-0.2); Basophils % (auto) 0.1 % (0.0-2.0); Eosinophils # (auto) 0 10 ^3/uL (0-0.8); Mean Corpuscular Hemoglobin 25.4 pg (28.0-32.0)
[2022-01-03 07:26] LABS: Hematocrit 43.4 % (41.0-53.0); Hemoglobin 14.4 g/dL (13.5-17.5); Lymphocytes # (auto) 0.5 10 ^3/uL (0.4-5.4); Lymphocytes % (auto) 6.5 % (10.0-50.0); Mean Corpuscular Hgb Conc. 33.1 g/dL (32.0-36.0); Mean Corpuscular Volume 76.7 fL (80.0-100.0); Monocytes # (auto) 0.3 10 ^3/uL (0-1.3); Monocytes % (auto) 3.1 % (0.0-12.0); Neutrophils # (auto) 7.5 10 ^3/uL (1.6-8.6); Neutrophils % (auto) 90.3 % (37.0-80.0); Red Blood Cells 5.66 10^6/uL (4.5-5.90); Red Cell Distribution Width 19.6 % (11.8-14.3); White Blood Cell 8.3 10^3/uL (4.4-10.8)
[2022-01-03 07:35] LABS: Albumin 2.8 g/dL (3.4-5.0); Calcium 8.5 mg/dL (8.5-10.1); Potassium 4.9 mmol/L (3.5-5.1)
[2022-01-03 07:42] LABS: BUN/Creatinine Ratio 43.6; Bilirubin, Total 0.7 mg/dL (0.2-1.0); Total Protein 5.7 g/dL (6.4-8.2)
[2022-01-03 08:25] VITALS: BP 150/96
[2022-01-03] MEDS: levoFLOXacin 500 MG TAB PO SCH (09:25)
[2022-01-03] MEDS: FUROSEMIDE 40 MG TAB PO SCH (09:25)
[2022-01-03] MEDS: RIVAROXABAN 20 MG TAB PO SCH (09:26)
[2022-01-03] MEDS: NYSTATIN TOPICAL CREAM 15GM TOP SCH (09:26)
[2022-01-03] MEDS ORDERED: dilTIAZem HCL 180MG ER CAP PO SCH (10:00)
[2022-01-03 12:20] VITALS: BP 142/91
[2022-01-03] MEDS ORDERED: METH4PAK PO (15:50)
[2022-01-03] MEDS ORDERED: TAM04C PO (15:51)
[2022-01-03 16:15] VITALS: BP 117/73
[2022-01-03 16:38] VITALS: BP 156/96
[2022-01-04] MEDS ORDERED: predniSONE 20 MG TAB PO SCH (10:00)
== END 2022-01-03 18:13 | disposition home or self-care (01) | DRG 190 ==
LOC: EDBD 14:26 → ER 14:26 → TELE 17:28 → TELE-WESTW 21:48
PROVIDERS: ADMIT Registered Nurse; ATTEND Student in an Organized Health Care Education/Training Program
DX: J44.1 Chronic obstructive pulmonary disease with (acute) exacerbation (principal); J15.0 Pneumonia due to Klebsiella pneumoniae; D68.59 Other primary thrombophilia; N39.0 Urinary tract infection, site not specified; J98.11 Atelectasis; K51.90 Ulcerative colitis, unspecified, without complications; E66.01 Morbid (severe) obesity due to excess calories; J44.0 Chronic obstructive pulmonary disease with (acute) lower respiratory infection; B37.2 Candidiasis of skin and nail; Z20.822 Contact with and (suspected) exposure to COVID-19; I48.0 Paroxysmal atrial fibrillation; J20.9 Acute bronchitis, unspecified; I50.9 Heart failure, unspecified; I11.0 Hypertensive heart disease with heart failure; I25.10 Atherosclerotic heart disease of native coronary artery without angina pectoris; N40.0 Benign prostatic hyperplasia without lower urinary tract symptoms; Z93.3 Colostomy status; Z68.33 Body mass index [BMI] 33.0-33.9, adult; I25.2 Old myocardial infarction
CPT/HCPCS: 36415; 71045; 80053; 80061; 81001; 83036; 83880; 84443; 84484; 85025; 85379; 85610; 85730; 87040; 87070; 87077; 87186; 87205; 87426; 93005; 94640; 94660; 96365; 96367; G0378; J0696; J2185

== ENCOUNTER 2022-04-08 15:54 | Inpatient (IN) | payer OTHER, MEDICAID ==
[~2022-04-08] VITALS: Ht 188 cm; Wt 98.5 kg
[~2022-04-08 15:54] MED LIST changes: +ALBU108A5 IN; +METH4PAK PO; +TAM04C PO
[2022-04-08] MEDS ORDERED: ALBUTEROL MEDNEB 2.5 mg/3ml NEB ONE (16:13)
[2022-04-08] MEDS ORDERED: ALBUTEROL SULF 2.5 MG/0.5ML(0.5%) NEB SOLN NEB ONE (16:15)
[2022-04-08] MEDS ORDERED: IPRATROPIUM BROM 0.5 MG/2.5ML INH SOL NEB ONE (16:15)
[2022-04-08] MEDS ORDERED: methylPREDNISolone SOD SUCC 125 MG/2 ML VL IV ONE (16:15)
[2022-04-08 16:39] LABS: Basophils # (auto) 0.1 10 ^3/uL (0-0.2); Basophils % (auto) 0.4 % (0.0-2.0); Eosinophils # (auto) 0 10 ^3/uL (0-0.8); Eosinophils % (auto) 0.3 % (0.0-7.0); Hematocrit 44.2 % (41.0-53.0); Hemoglobin 14.7 g/dL (13.5-17.5); Lymphocytes # (auto) 1.3 10 ^3/uL (0.4-5.4); Lymphocytes % (auto) 9.7 % (10.0-50.0); Mean Corpuscular Hgb Conc. 33.3 g/dL (32.0-36.0); Mean Corpuscular Volume 81.2 fL (80.0-100.0); Monocytes # (auto) 1.5 10 ^3/uL (0-1.3); Monocytes % (auto) 10.9 % (0.0-12.0); Neutrophils # (auto) 10.5 10 ^3/uL (1.6-8.6); Neutrophils % (auto) 78.7 % (37.0-80.0); Nucleated Red Blood Cells % 0.1 %; Red Blood Cells 5.44 10^6/uL (4.5-5.90); Red Cell Distribution Width 18.4 % (11.8-14.3); White Blood Cell 13.3 10^3/uL (4.4-10.8)
[2022-04-08 17:00] LABS: Albumin 3.5 g/dL (3.4-5.0); Magnesium 2.7 mg/dL (1.6-2.6); Potassium 4.1 mmol/L (3.5-5.1)
[2022-04-08 17:03] LABS: BUN/Creatinine Ratio 17.9; Bilirubin, Total 0.9 mg/dL (0.2-1.0)
[2022-04-08] MEDS ORDERED: dilTIAZem 25 MG/5 ML VIAL IV ONE (17:30)
[2022-04-08 19:34] LABS: Urine Bacteria FEW /hpf (None Seen); Urine Blood 1+ /uL (Negative); Urine Hyaline Cast FEW /lpf (0 - 2); Urine Mucus FEW (None Seen); Urine Specific Gravity 1.015 (1.001-1.035); Urine WBC 485 /hpf (0 - 3); Urine WBC Clumps PRESENT /hpf (None Seen)
[2022-04-08] MEDS ORDERED: ACETAMINOPHEN 325 MG TAB PO PRN (20:15)
[2022-04-08] MEDS ORDERED: DOCUSATE SOD 100 MG CAP PO PRN (20:15)
[2022-04-08] MEDS: ALBUTEROL SULF 2.5 MG/0.5ML(0.5%) NEB SOLN NEB SCH (22:20)
[2022-04-08] MEDS: IPRATROPIUM BROM 0.5 MG/2.5ML INH SOL NEB SCH (22:20)
[2022-04-09] MEDS: ONDANSETRON HCL 4 MG/2 ML VIAL IV PRN ×2 (01:06→05:02)
[2022-04-09] MEDS: cefTRIAXone 1GM/50ML D5W 50 ML IV SCH ×2 (01:06→10:00)
[2022-04-09] MEDS: MORPHINE SULFATE INJ 2 MG/ml SYRG IV PRN ×3 (01:08→10:01)
[2022-04-09] MEDS: methylPREDNISolone SOD SUCC 40 MG/ML VL IV SCH ×4 (01:08→21:13)
[2022-04-09] MEDS: METOPROLOL TARTRATE 50 MG TAB PO SCH ×3 (01:09→21:13)
[2022-04-09] MEDS: AZITHROMYCIN 500MG/ 250ML 250 ML IV SCH ×2 (01:36→10:00)
[2022-04-09] MEDS: ALBUTEROL SULF 2.5 MG/0.5ML(0.5%) NEB SOLN NEB SCH ×4 (06:00→22:45)
[2022-04-09] MEDS ORDERED: ALBUTEROL MEDNEB 2.5 mg/3ml NEB ONE ×4 (06:04→22:19)
[2022-04-09 06:05] LABS: Basophils # (auto) 0 10 ^3/uL (0-0.2); Basophils % (auto) 0.1 % (0.0-2.0); Eosinophils # (auto) 0 10 ^3/uL (0-0.8); Hematocrit 41.5 % (41.0-53.0); Hemoglobin 14.1 g/dL (13.5-17.5); Lymphocytes # (auto) 0.6 10 ^3/uL (0.4-5.4); Lymphocytes % (auto) 8.2 % (10.0-50.0); Mean Corpuscular Hemoglobin 27.7 pg (28.0-32.0); Mean Corpuscular Hgb Conc. 33.9 g/dL (32.0-36.0); Mean Corpuscular Volume 81.8 fL (80.0-100.0); Monocytes # (auto) 0.1 10 ^3/uL (0-1.3); Monocytes % (auto) 1.8 % (0.0-12.0); Neutrophils % (auto) 89.9 % (37.0-80.0); Nucleated Red Blood Cells % 0.1 %; Red Blood Cells 5.08 10^6/uL (4.5-5.90); Red Cell Distribution Width 18.3 % (11.8-14.3); White Blood Cell 7.8 10^3/uL (4.4-10.8)
[2022-04-09] MEDS: IPRATROPIUM BROM 0.5 MG/2.5ML INH SOL NEB SCH ×4 (06:37→22:45)
[2022-04-09 06:49] LABS: BUN/Creatinine Ratio 23.6; Calcium 9.1 mg/dL (8.5-10.1); Potassium 4.2 mmol/L (3.5-5.1)
[2022-04-09] MEDS ORDERED: PANTOPRAZOLE 40 MG TAB PO ONE (15:15)
[2022-04-09] MEDS ORDERED: ENOXAPARIN SOD 40 MG/0.4 ML SYRINGE SC ONE (15:15)
[2022-04-09] MEDS: HYDROcodone-ACET 5/325MG TAB PO PRN (21:13)
[2022-04-09 22:00] VITALS: BP 133/75
[2022-04-10 05:00] VITALS: BP 134/87
[2022-04-10] MEDS ORDERED: ALBUTEROL MEDNEB 2.5 mg/3ml NEB ONE ×4 (06:05→21:42)
[2022-04-10 06:18] LABS: BUN/Creatinine Ratio 31.5; Calcium 8.9 mg/dL (8.5-10.1); Potassium 4.5 mmol/L (3.5-5.1)
[2022-04-10] MEDS: ALBUTEROL SULF 2.5 MG/0.5ML(0.5%) NEB SOLN NEB SCH ×6 (06:45→21:43)
[2022-04-10] MEDS: IPRATROPIUM BROM 0.5 MG/2.5ML INH SOL NEB SCH ×5 (06:45→21:43)
[2022-04-10] MEDS ORDERED: PANTOPRAZOLE 40 MG TAB PO SCH (10:00)
[2022-04-10] MEDS ORDERED: ENOXAPARIN SOD 40 MG/0.4 ML SYRINGE SC SCH (10:00)
[2022-04-10] MEDS: cefTRIAXone 1GM/50ML D5W 50 ML IV SCH (10:52)
[2022-04-10] MEDS: HYDROcodone-ACET 5/325MG TAB PO PRN ×3 (10:53→23:10)
[2022-04-10] MEDS: methylPREDNISolone SOD SUCC 40 MG/ML VL IV SCH ×2 (10:53→23:41)
[2022-04-10] MEDS: METOPROLOL TARTRATE 50 MG TAB PO SCH ×2 (10:54→23:10)
[2022-04-10] MEDS ORDERED: PANTOPRAZOLE 40 MG TAB PO ONE (11:30)
[2022-04-10] MEDS ORDERED: BUDESONIDE (INHALATION) 0.5 MG/2 ML NEB NEB ONE (11:30)
[2022-04-10 13:00] VITALS: BP 133/67
[2022-04-10] MEDS: AZITHROMYCIN 500MG/ 250ML 250 ML IV SCH (14:43)
[2022-04-10] MEDS: GABAPENTIN 300 MG CAP PO SCH ×2 (14:44→23:10)
[2022-04-10 15:26] LABS: Hepatitis C Antibody Negative (Negative)
[2022-04-10 17:00] VITALS: BP 130/85
[2022-04-10] MEDS: BUDESONIDE (INHALATION) 0.5 MG/2 ML NEB NEB SCH (17:47)
[2022-04-10] MEDS: TAMSULOSIN HYDROCHLORIDE 0.4 MG CAP PO SCH (18:44)
[2022-04-10] MEDS: RIVAROXABAN 20 MG TAB PO SCH (18:44)
[2022-04-10 22:33] VITALS: BP 124/79
[2022-04-11] MEDS ORDERED: ALBUTEROL MEDNEB 2.5 mg/3ml NEB ONE ×2 (02:56→06:08)
[2022-04-11] MEDS: ALBUTEROL SULF 2.5 MG/0.5ML(0.5%) NEB SOLN NEB SCH ×3 (02:56→10:26)
[2022-04-11] MEDS: IPRATROPIUM BROM 0.5 MG/2.5ML INH SOL NEB SCH ×6 (03:18→22:00)
[2022-04-11 05:13] VITALS: BP 134/86
[2022-04-11] MEDS: HYDROcodone-ACET 5/325MG TAB PO PRN ×3 (05:14→22:21)
[2022-04-11] MEDS: GABAPENTIN 300 MG CAP PO SCH ×3 (05:14→22:21)
[2022-04-11 09:00] VITALS: BP 158/94
[2022-04-11] MEDS: methylPREDNISolone SOD SUCC 40 MG/ML VL IV SCH ×2 (09:37→22:21)
[2022-04-11] MEDS: cefTRIAXone 1GM/50ML D5W 50 ML IV SCH (09:37)
[2022-04-11] MEDS: METOPROLOL TARTRATE 50 MG TAB PO SCH ×2 (09:38→22:21)
[2022-04-11] MEDS: PANTOPRAZOLE 40 MG TAB PO SCH (09:38)
[2022-04-11] MEDS: POTASSIUM CHL 20 Meq TABLET PO SCH (09:38)
[2022-04-11] MEDS: FUROSEMIDE 40 MG TAB PO SCH (09:45)
[2022-04-11] MEDS: BUDESONIDE (INHALATION) 0.5 MG/2 ML NEB NEB SCH ×2 (10:00→22:00)
[2022-04-11] MEDS: DALIRESP 500 MCG PO SCH (10:00)
[2022-04-11] MEDS ORDERED: ERTAPENEM SOD INJ 1 GM in SODIUM CHL 0.9% 50 ML IV ONE (11:45)
[2022-04-11 13:00] VITALS: BP 144/88
[2022-04-11] MEDS: ALBUTEROL MEDNEB 2.5 mg/3ml NEB NEB SCH ×3 (14:07→22:02)
[2022-04-11] MEDS: ACETYLCYSTEINE 20%(200MG/ML) SOL 4ML NEB SCH ×2 (14:08→22:03)
[2022-04-11 15:30] LABS: Urine Bacteria MANY /hpf (None Seen); Urine Blood 3+ /uL (Negative); Urine Hyaline Cast MOD /lpf (0 - 2); Urine Mucus FEW (None Seen); Urine Specific Gravity 1.021 (1.001-1.035); Urine WBC 387 /hpf (0 - 3)
[2022-04-11 17:00] VITALS: BP 151/91
[2022-04-11] MEDS: TAMSULOSIN HYDROCHLORIDE 0.4 MG CAP PO SCH (18:48)
[2022-04-11] MEDS: RIVAROXABAN 20 MG TAB PO SCH (18:49)
[2022-04-11 22:00] VITALS: BP 144/87
[2022-04-12] MEDS: ALBUTEROL MEDNEB 2.5 mg/3ml NEB NEB SCH ×6 (02:28→21:50)
[2022-04-12 05:00] VITALS: BP_SYST 113; BP_SYST 91; BP_DIAS 56; BP_DIAS 59
[2022-04-12] MEDS: GABAPENTIN 300 MG CAP PO SCH ×3 (05:31→21:36)
[2022-04-12] MEDS: HYDROcodone-ACET 5/325MG TAB PO PRN ×3 (05:31→21:37)
[2022-04-12] MEDS: ACETYLCYSTEINE 20%(200MG/ML) SOL 4ML NEB SCH ×3 (06:41→21:49)
[2022-04-12] MEDS: IPRATROPIUM BROM 0.5 MG/2.5ML INH SOL NEB SCH ×6 (06:41→21:50)
[2022-04-12 06:42] LABS: Basophils # (auto) 0 10 ^3/uL (0-0.2); Basophils % (auto) 0.1 % (0.0-2.0); Eosinophils # (auto) 0 10 ^3/uL (0-0.8); Hemoglobin 13.3 g/dL (13.5-17.5); Monocytes # (auto) 0.4 10 ^3/uL (0-1.3)
[2022-04-12 06:45] LABS: Hematocrit 40.7 % (41.0-53.0); Lymphocytes # (auto) 0.6 10 ^3/uL (0.4-5.4); Lymphocytes % (auto) 5.9 % (10.0-50.0); Mean Corpuscular Hemoglobin 26.9 pg (28.0-32.0); Mean Corpuscular Hgb Conc. 32.7 g/dL (32.0-36.0); Mean Corpuscular Volume 82.3 fL (80.0-100.0); Monocytes % (auto) 3.8 % (0.0-12.0); Neutrophils # (auto) 8.9 10 ^3/uL (1.6-8.6); Neutrophils % (auto) 90.2 % (37.0-80.0); Red Blood Cells 4.95 10^6/uL (4.5-5.90); Red Cell Distribution Width 17.9 % (11.8-14.3); White Blood Cell 9.9 10^3/uL (4.4-10.8)
[2022-04-12 07:01] LABS: Calcium 9.3 mg/dL (8.5-10.1); Potassium 5.1 mmol/L (3.5-5.1)
[2022-04-12 07:04] LABS: BUN/Creatinine Ratio 28.1
[2022-04-12 09:00] VITALS: BP 139/79
[2022-04-12] MEDS: PANTOPRAZOLE 40 MG TAB PO SCH (09:59)
[2022-04-12] MEDS: methylPREDNISolone SOD SUCC 40 MG/ML VL IV SCH (09:59)
[2022-04-12] MEDS: POTASSIUM CHL 20 Meq TABLET PO SCH (10:00)
[2022-04-12] MEDS: DALIRESP 500 MCG PO SCH (10:00)
[2022-04-12] MEDS: BUDESONIDE (INHALATION) 0.5 MG/2 ML NEB NEB SCH ×2 (10:00→18:51)
[2022-04-12] MEDS: FUROSEMIDE 40 MG TAB PO SCH (10:04)
[2022-04-12] MEDS: METOPROLOL TARTRATE 50 MG TAB PO SCH ×2 (10:04→21:38)
[2022-04-12] MEDS: ERTAPENEM SOD INJ 1 GM in SODIUM CHL 0.9% 50 ML IV SCH (10:07)
[2022-04-12 13:00] VITALS: BP 134/76
[2022-04-12 16:39] VITALS: BP 132/74
[2022-04-12] MEDS: TAMSULOSIN HYDROCHLORIDE 0.4 MG CAP PO SCH (17:45)
[2022-04-12] MEDS: RIVAROXABAN 20 MG TAB PO SCH (17:45)
[2022-04-12 22:00] VITALS: BP 143/90
[2022-04-13 05:00] VITALS: BP 120/63
[2022-04-13] MEDS: GABAPENTIN 300 MG CAP PO SCH ×2 (05:27→14:16)
[2022-04-13] MEDS: HYDROcodone-ACET 5/325MG TAB PO PRN ×2 (05:27→14:16)
[2022-04-13] MEDS: IPRATROPIUM BROM 0.5 MG/2.5ML INH SOL NEB SCH ×3 (07:09→14:37)
[2022-04-13] MEDS: ACETYLCYSTEINE 20%(200MG/ML) SOL 4ML NEB SCH ×2 (07:09→14:38)
[2022-04-13] MEDS: ALBUTEROL MEDNEB 2.5 mg/3ml NEB NEB SCH ×3 (07:09→14:38)
[2022-04-13 09:00] VITALS: BP 119/74
[2022-04-13] MEDS ORDERED: predniSONE 20 MG TAB PO SCH (10:00)
[2022-04-13] MEDS: DALIRESP 500 MCG PO SCH (10:00)
[2022-04-13] MEDS: BUDESONIDE (INHALATION) 0.5 MG/2 ML NEB NEB SCH (10:23)
[2022-04-13] MEDS: PANTOPRAZOLE 40 MG TAB PO SCH (10:24)
[2022-04-13] MEDS: ERTAPENEM SOD INJ 1 GM in SODIUM CHL 0.9% 50 ML IV SCH (10:24)
[2022-04-13] MEDS: METOPROLOL TARTRATE 50 MG TAB PO SCH (10:25)
[2022-04-13] MEDS: FUROSEMIDE 40 MG TAB PO SCH (10:25)
[2022-04-13 13:00] VITALS: BP 133/92
[2022-04-13 17:00] VITALS: BP 119/78
[2022-04-13 17:31] VITALS: BP 119/78
== END 2022-04-13 18:42 | disposition home or self-care (01) | DRG 871 ==
LOC: EDBD 15:54 → EDSEX 15:54 → ER 15:56 → TELE 20:18 → TELE-WESTW 04-09 16:42
PROVIDERS: ADMIT Hospitalist; ATTEND Internal Medicine
PROC: 05HD33Z Insertion of Infusion Device into Right Cephalic Vein, Percutaneous Approach (ICD-10-PCS; principal; 2022-04-11)
PROC: B54MZZA Ultrasonography of Right Upper Extremity Veins, Guidance (ICD-10-PCS; 2022-04-11)
DX: A41.59 Other Gram-negative sepsis (principal); J18.9 Pneumonia, unspecified organism; J96.20 Acute and chronic respiratory failure, unspecified whether with hypoxia or hypercapnia; J44.1 Chronic obstructive pulmonary disease with (acute) exacerbation; N39.0 Urinary tract infection, site not specified; D68.69 Other thrombophilia; I48.20 Chronic atrial fibrillation, unspecified; I50.32 Chronic diastolic (congestive) heart failure; K51.90 Ulcerative colitis, unspecified, without complications; Z20.822 Contact with and (suspected) exposure to COVID-19; G89.29 Other chronic pain; I11.0 Hypertensive heart disease with heart failure; M06.9 Rheumatoid arthritis, unspecified; I25.10 Atherosclerotic heart disease of native coronary artery without angina pectoris; N28.1 Cyst of kidney, acquired; N40.1 Benign prostatic hyperplasia with lower urinary tract symptoms; I25.2 Old myocardial infarction; Z79.01 Long term (current) use of anticoagulants; Z79.51 Long term (current) use of inhaled steroids; Z79.899 Other long term (current) drug therapy; Z87.440 Personal history of urinary (tract) infections; Z93.3 Colostomy status; Z95.0 Presence of cardiac pacemaker
CPT/HCPCS: 36415; 36600; 71045; 74176; 76775; 80048; 80053; 81001; 82805; 83605; 83735; 83880; 84154; 84484; 85025; 85379; 86803; 87081; 87086; 87088; 87186; 87340; 87426; 87804; 93005; 94640; 99291; G0378; J0696; J1335; J2405

== ENCOUNTER 2022-07-12 19:46 | Emergency (ER) | payer OTHER, MEDICAID ==
[~2022-07-12] VITALS: Ht 182.9 cm; Wt 90.0 kg
[2022-07-12] MEDS: HYDROcodone-ACET 5/325MG TAB PO ONE (20:27)
[2022-07-12] MEDS ORDERED: HYDR-4798 PO (22:15)
[2022-07-12 22:26] VITALS: BP 117/75
== END 2022-07-12 22:43 | disposition home or self-care (01) ==
LOC: EDBD 19:46 → ER 19:46
DX: M25.561 Pain in right knee (principal); J44.9 Chronic obstructive pulmonary disease, unspecified; I10 Essential (primary) hypertension; I25.2 Old myocardial infarction; Z88.1 Allergy status to other antibiotic agents; Z88.6 Allergy status to analgesic agent; Z88.8 Allergy status to other drugs, medicaments and biological substances; Z87.891 Personal history of nicotine dependence
CPT/HCPCS: 73562

== ENCOUNTER 2023-08-22 14:53 | Inpatient (IN) | payer MEDICARE, MEDICAID ==
[~2023-08-22] VITALS: Ht 182.9 cm; Wt 99.5 kg
[2023-08-22] VITALS (11 sets, daily range): BP systolic 131–145; BP diastolic 68–104; PULSE 55–118; RESP 18–22; TEMP 98.1–99.7; O2SAT 93–99
[~2023-08-22 14:53] MED LIST changes: +FOLI-119 PO; -FOLI1TAB6 PO; +GABA-1250 PO; -GABA300C10 PO; +HYDR-4798 PO; -OMEP-263 PO; +OMEP-448 PO; -TAM04C PO; +TAMS-35 PO
[2023-08-22] MEDS ORDERED: MORPHINE SULFATE INJ 2 MG/ml SYRG IV PRN (16:00)
[2023-08-22] MEDS ORDERED: NITROGLYCERIN 0.4 MG SL TAB SL PRN (16:00)
[2023-08-22 17:55] LABS: Basophils # (auto) 0.1 10 ^3/uL (0-0.2); Basophils % (auto) 0.5 % (0.0-2.0); Eosinophils # (auto) 0 10 ^3/uL (0-0.8); Eosinophils % (auto) 0.1 % (0.0-7.0); Hematocrit 43.1 % (41.0-53.0); Hemoglobin 14.3 g/dL (13.5-17.5); Lymphocytes # (auto) 0.3 10 ^3/uL (0.4-5.4); Lymphocytes % (auto) 2.1 % (10.0-50.0); Mean Corpuscular Hemoglobin 28.9 pg (28.0-32.0); Mean Corpuscular Hgb Conc. 33.1 g/dL (32.0-36.0); Mean Corpuscular Volume 87.3 fL (80.0-100.0); Monocytes # (auto) 0.7 10 ^3/uL (0-1.3); Monocytes % (auto) 4.5 % (0.0-12.0); Neutrophils # (auto) 15.1 10 ^3/uL (1.6-8.6); Neutrophils % (auto) 92.8 % (37.0-80.0); Red Blood Cells 4.94 10^6/uL (4.5-5.90); Red Cell Distribution Width 14.5 % (11.8-14.3); White Blood Cell 16.2 10^3/uL (4.4-10.8)
[2023-08-22] MEDS ORDERED: METHOTREXATE 2.5 MG TAB PO SCH (18:00)
[2023-08-22 18:07] LABS: Chloride 106 mmol/L (98-107); Potassium 3.6 mmol/L (3.5-5.1); Sodium 136 mmol/L (136-145)
[2023-08-22 18:08] LABS: Anion Gap 10 (5-15); Carbon Dioxide 20 mmol/L (20-30)
[2023-08-22 18:09] LABS: Calcium 9.3 mg/dL (8.5-10.1)
[2023-08-22 18:13] LABS: BUN/Creatinine Ratio 10.3 (10.0-20.0); Blood Urea Nitrogen 11 mg/dL (9-23); Glucose 86 mg/dL (74-106)
[2023-08-22] MEDS ORDERED: ALBUTEROL SULF HFA 90MCG INH 200DOSE IN PRN (20:30)
[2023-08-22] MEDS: ALBUTEROL SULF 2.5 MG/0.5ML(0.5%) NEB SOLN ONE (20:57)
[2023-08-22] MEDS: cefTRIAXone 1GM/50ML D5W 50 ML IV SCH (21:08)
[2023-08-22] MEDS: BUDESONIDE (INHALATION) 0.5 MG/2 ML NEB NEB SCH (21:58)
[2023-08-22] MEDS ORDERED: METOPROLOL SUCCINATE XL 50 MG TAB PO SCH (22:00)
[2023-08-22] MEDS: TAMSULOSIN HYDROCHLORIDE 0.4 MG CAP PO SCH (22:27)
[2023-08-22] MEDS: GABAPENTIN 300 MG CAP PO SCH (22:27)
[2023-08-22] MEDS: SUCRALFATE 1 GM TAB PO SCH (22:27)
[2023-08-23] VITALS (15 sets, daily range): BP systolic 123–139; BP diastolic 65–79; PULSE 56–106; RESP 16–20; TEMP 98–99.9; O2SAT 84–100
[2023-08-23] MEDS: ALBUTEROL SULF 2.5 MG/0.5ML(0.5%) NEB SOLN NEB PRN (03:34)
[2023-08-23] MEDS: HYDROcodone-ACET 5/325MG TAB PO PRN (03:57)
[2023-08-23 06:40] LABS: Urine Bacteria MANY /hpf (None Seen); Urine Blood 3+ /uL (Negative); Urine Mucus FEW (None Seen); Urine Protein, UAD 2+ (Negative); Urine Specific Gravity 1.014 (1.001-1.035); Urine Urobilinogen Normal (Negative); Urine WBC 4006 /hpf (0 - 3); Urine WBC Clumps PRESENT /hpf (None Seen); Urine pH 5.5 (5.0-9.0)
[2023-08-23 07:33] LABS: Urine Color Yellow (Yellow)
[2023-08-23 07:34] LABS: Urine Clarity TURBID (Clear)
[2023-08-23] MEDS: BUDESONIDE (INHALATION) 0.5 MG/2 ML NEB ONE (11:14)
[2023-08-23] MEDS: ALBUTEROL SULF 2.5 MG/0.5ML(0.5%) NEB SOLN ONE (11:14)
[2023-08-23] MEDS: PANTOPRAZOLE 40 MG TAB PO SCH (11:23)
[2023-08-23] MEDS: METOPROLOL SUCCINATE XL 50 MG TAB PO SCH (11:25)
[2023-08-23] MEDS: FUROSEMIDE 40 MG TAB PO SCH (11:26)
[2023-08-23] MEDS: FOLIC ACID 1 MG TAB PO SCH (11:26)
[2023-08-23] MEDS: CHOLECALCIFEROL (VITD3) 1,000UNIT=25mCg TAB PO SCH (11:28)
[2023-08-23] MEDS ORDERED: RIVAROXABAN 20 MG TAB PO SCH (18:00)
[2023-08-24] VITALS (16 sets, daily range): BP systolic 113–149; BP diastolic 65–95; PULSE 69–100; RESP 16–20; TEMP 97.6–98.5; O2SAT 94–100
[2023-08-24 08:06] LABS: PSA Free 0.3 ng/mL; Prostate Specific Antigen 1.2 ng/mL (0.0-4.0)
[2023-08-24] MEDS: BUDESONIDE (INHALATION) 0.5 MG/2 ML NEB ONE (22:44)
[2023-08-25] VITALS (13 sets, daily range): BP systolic 120–141; BP diastolic 71–89; PULSE 57–103; RESP 16–20; TEMP 97.8–98.8; O2SAT 95–99
[2023-08-25] MEDS ORDERED: ALBUTEROL SULF 2.5 MG/0.5ML(0.5%) NEB SOLN ONE ×2 (06:00→11:02)
[2023-08-25] MEDS ORDERED: BUDESONIDE (INHALATION) 0.5 MG/2 ML NEB ONE (06:00)
[2023-08-25] MEDS ORDERED: CIPR-173 PO (09:10)
== END 2023-08-25 17:10 | disposition home or self-care (01) | DRG 871 ==
LOC: INTOOBSV 15:25 → CENTRAL 15:25 → OBSVTOIN 08-24 08:58
PROVIDERS: ADMIT Urology; ATTEND Family Medicine
DX: A41.51 Sepsis due to Escherichia coli [E. coli] (principal); R65.21 Severe sepsis with septic shock; J44.1 Chronic obstructive pulmonary disease with (acute) exacerbation; N13.6 Pyonephrosis; E87.21 Acute metabolic acidosis; I10 Essential (primary) hypertension; I48.91 Unspecified atrial fibrillation; M06.9 Rheumatoid arthritis, unspecified; N28.1 Cyst of kidney, acquired; N40.1 Benign prostatic hyperplasia with lower urinary tract symptoms; R33.8 Other retention of urine; R31.9 Hematuria, unspecified; I25.2 Old myocardial infarction; Z82.49 Family history of ischemic heart disease and other diseases of the circulatory system; Z93.3 Colostomy status; Z95.0 Presence of cardiac pacemaker; Z90.49 Acquired absence of other specified parts of digestive tract
CPT/HCPCS: 36415; 76775; 80048; 81001; 84154; 85025; 87040; 87086; 87088; 87186; 94640; G0378

== ENCOUNTER 2023-10-30 07:32 | Day surgery (SDC) | payer MEDICARE, MEDICAID ==
[2023-10-25 12:54] LABS: Urine Bacteria None Seen /hpf (None Seen)
[2023-10-25 13:02] LABS: Basophils # (auto) 0.1 10 ^3/uL (0-0.2); Basophils % (auto) 0.8 % (0.0-2.0); Eosinophils # (auto) 0.3 10 ^3/uL (0-0.8); Hematocrit 46.8 % (41.0-53.0); Hemoglobin 15.9 g/dL (13.5-17.5); Lymphocytes # (auto) 1.5 10 ^3/uL (0.4-5.4); Lymphocytes % (auto) 15.2 % (10.0-50.0); Mean Corpuscular Hemoglobin 29.3 pg (28.0-32.0); Mean Corpuscular Volume 86.2 fL (80.0-100.0); Monocytes # (auto) 0.7 10 ^3/uL (0-1.3); Monocytes % (auto) 7.5 % (0.0-12.0); Neutrophils # (auto) 7.1 10 ^3/uL (1.6-8.6); Neutrophils % (auto) 73.5 % (37.0-80.0); Nucleated Red Blood Cells % 0.1 %; Platelet Count (auto) 305 10^3/uL (140-450); Red Blood Cells 5.42 10^6/uL (4.5-5.90); Red Cell Distribution Width 17.4 % (11.8-14.3); White Blood Cell 9.7 10^3/uL (4.4-10.8)
[2023-10-25 13:05] LABS: Urine Blood 3+ /uL (Negative); Urine Clarity Ex.Turbid (Clear); Urine Color Light-Brown (Yellow); Urine Mucus FEW (None Seen); Urine Protein, UAD 1+ (Negative); Urine Specific Gravity 1.014 (1.001-1.035); Urine Urobilinogen Normal (Negative); Urine WBC 1331 /hpf (0 - 3); Urine WBC Clumps PRESENT /hpf (None Seen); Urine pH 5.5 (5.0-9.0)
[2023-10-25 13:19] LABS: INR 1.3 (0.9-1.15); Partial Thromboplastin Time 35.8 SEC (24.5-34.5); Prothrombin Time 13.5 sec (9.3-11.8)
[2023-10-25 13:31] LABS: Alanine Aminotransferase 10 U/L (7-40); Albumin 4.1 g/dL (3.2-4.8); Alkaline Phosphatase 78 U/L (46-116); Anion Gap 0 (5-15); Aspartate Aminotransferase 11 U/L (13-40); BUN/Creatinine Ratio 10.5 (10.0-20.0); Bilirubin, Total 0.7 mg/dL (0.2-1.0); Blood Urea Nitrogen 11 mg/dL (9-23); Calcium 9.7 mg/dL (8.7-10.4); Carbon Dioxide 26 mmol/L (20-30); Chloride 110 mmol/L (98-107); Glucose 89 mg/dL (74-106); Potassium 4.2 mmol/L (3.5-5.1); Sodium 136 mmol/L (136-145)
[~2023-10-30 07:32] MED LIST changes: +CIPR-173 PO
[2023-10-30] MEDS ORDERED: CIPROFLOXACIN 400MG/200ML 200 ML IV ONE (10:57)
[2023-10-30] MEDS ORDERED: fentaNYL CITRATE 100 MCG/2 ML VL ONE (12:47)
[2023-10-30] MEDS ORDERED: PROPOFOL 10 MG/ML 20 ML IV ONE (12:48)
[2023-10-30] MEDS ORDERED: MEPERIDINE HCL (50 MG/ML) 1 ML VIAL ONE ×2 (13:10→13:29)
[2023-10-30] MEDS ORDERED: hydrALAZINE HCL 20 MG/ML VL ONE (13:36)
[2023-10-30 14:02] VITALS: PULSE 75; RESP 22; TEMP 97.9; O2SAT 97
[2023-10-30] MEDS ORDERED: HYDROmorphone HCL 2 MG/ML VL/or syr IV PRN (14:15)
[2023-10-30] MEDS ORDERED: hydrALAZINE HCL 20 MG/ML VL IV PRN (14:15)
[2023-10-30] MEDS: ONDANSETRON HCL 4 MG/2 ML VIAL IV ONE (14:28)
[2023-10-30] MEDS ORDERED: ONDANSETRON HCL 4 MG/2 ML VIAL ONE (14:30)
[2023-10-30 14:47] VITALS: BP 149/76; PULSE 74; RESP 12; O2SAT 95
== END 2023-10-30 14:20 | disposition home or self-care (01) ==
LOC: SUR 07:32
PROVIDERS: ATTEND Urology
DX: N40.1 Benign prostatic hyperplasia with lower urinary tract symptoms (principal); D30.3 Benign neoplasm of bladder; I10 Essential (primary) hypertension; R33.8 Other retention of urine; N30.90 Cystitis, unspecified without hematuria; N41.1 Chronic prostatitis; E11.9 Type 2 diabetes mellitus without complications; I48.91 Unspecified atrial fibrillation; J44.9 Chronic obstructive pulmonary disease, unspecified; Z87.891 Personal history of nicotine dependence; Z95.0 Presence of cardiac pacemaker; Z79.899 Other long term (current) drug therapy; Z79.84 Long term (current) use of oral hypoglycemic drugs; Z98.890 Other specified postprocedural states
CPT/HCPCS: 36415; 52240; 52601; 80053; 81001; 85025; 85610; 85730; 87086; 87088; 87186; 88305; 88342; J0360; J0744; J2175; J2405; J2704; J3010

== ENCOUNTER → 2024-05-12 | Outpatient (CLI) | payer MEDICARE, MEDICAID | END | disposition home or self-care (01) | LOC: LAB 13:27 | PROVIDERS: ATTEND Urology | DX: R31.9 Hematuria, unspecified (principal) | CPT/HCPCS: 84153 ==